=== PATIENT | male | born 1955 | race Caucasian/White ===

== ENCOUNTER 2017-12-04 16:24 | Observation (INO) | payer OTHER, SELFPAY ==
[2017-12-04] VITALS (7 sets, daily range): BP systolic 142–164; BP diastolic 72–94; PULSE 63–85; RESP 16–18; TEMP 36.6–37.1; O2SAT 95–100; BMI 26.4; BMI 26.9
--- NOTE | 2017-12-04 13:20 | ED.GIBLEED ---
HPI - GI Bleed <ANNELIESE Prescott - Last Filed: 12/04/17 16:22> General Chief complaint: GI Bleed Stated complaint: PASSING BLOODY STOOL Time Seen by Provider: 12/04/17 13:10 Source: patient and family Mode of arrival: ambulatory Limitations: no limitations History of Present Illness HPI Narrative: Patient presents with bright red blood per rectum. He has a history of hemorrhoids and has been having bright red blood per rectum on and off for a long time. However the past 2 weeks it has become worse. He has had several episodes where the bleeding is so bad that it runs down his pants. It happens in episodes when he is walking and he has no idea that happens. He does complain of some transient left abdominal pain that is not happening at this moment in time. He complains of blood after his bowel movements. Last bowel movement this morning. He denies any current abdominal pain nausea vomiting or diarrhea. He denies fevers. He does say that he has a hard time fully emptying his bladder. He denies any coffee-ground emesis or blood in his stool, only after his stool. He denies any lightheadedness or dizziness. Patient does have a history of colon polyps. His last colonoscopy was a year or 2 ago. Related Data Home Medications Medication Instructions Recorded Confirmed ascorbic acid (vitamin C) 1,000 mg PO DAILY #0 05/23/16 12/04/17 Previous Rx's Medication Instructions Recorded hydromorphone 4 mg PO Q4-6H PRN #30 tab 12/05/17 methylprednisolone [Medrol (Otto)] See Label Instructions PO PER PKG 12/05/17 DIR #21 each ondansetron 8 mg PO TID PRN #10 tab 12/05/17 Allergies Allergy/AdvReac Type Severity Reaction Status Date / Time promethazine [PROMETHAZINE] AdvReac Severe Agitated Verified 12/04/17 12:45 Fidgety Review of Systems <ANNELIESE Prescott - Last Filed: 12/04/17 16:22> Review of Systems GENERAL: See HPI HEENT: Denies sinus pain, ear pain, sore throat, difficulty swallowing, dizziness. RESPIRATORY: Denies dyspnea, cough, wheezing, hemoptysis, sputum. CARDIOVASCULAR: Denies chest pain, palpitations, orthopnea, edema, GASTROINTESTINAL: See HPI : Denies dysuria, frequency, incontinence, hematuria, urinary retention. MUSCULOSKELETAL: denies weakness, joint pain, or bony pain SKIN: Denies rash, skin lesions, or other NEUROLOGIC: Denies weakness, headache, numbness, change in speech, confusion, seizures, incoordination. PSYCHIATRIC: No concerning psychosocial issues. 12 point review of systems is negative except for those stated above Exam <Yeseniadana GordonRONNIE zapata-BC - Last Filed: 12/04/17 16:22> Narrative Exam Narrative: GENERAL: This is a well-nourished, well-developed patient, in no acute distress. HEAD: Atraumatic. Normocephalic. No temporal or scalp tenderness. EYES: Pupils equal round and reactive. Extraocular motions intact. No scleral icterus. No injection or drainage. ENT: Nose without bleeding, purulent drainage or septal hematoma. Throat without erythema, tonsillar hypertrophy or exudate. Uvula midline. Airway patent. NECK: Trachea midline. No JVD or lymphadenopathy. Supple, nontender, no meningeal signs. CARDIOVASCULAR: Regular rate and rhythm without murmurs, gallops, or rubs. RESPIRATORY: Clear to auscultation. Breath sounds equal bilaterally. No wheezes, rales, or rhonchi. GASTROINTESTINAL: Abdomen soft, non-tender, nondistended. No hepato-splenomegaly, or palpable masses. No guarding. Active bowel sounds all 4 quadrants. No pain to palpation. EXTREMITIES: No clubbing, cyanosis, or edema. No joint tenderness, effusion, or edema noted. BACK: Nontender without deformity or crepitance. No flank tenderness. NEURO: AOx3. SKIN: No rash or erythema. Rectal exam: Completed with Marysol RN at standby. Small external hemorrhoids visible. No internal hemorrhoids palpable. No anal fissure visible no obvious rectal bleeding. Initial Vital Signs Initial Vital Signs: Vital Signs Temperature 98.8 F 12/04/17 12:45 Pulse Rate 80 12/04/17 12:45 Respiratory Rate 16 12/04/17 12:45 Blood Pressure 144/80 H 12/04/17 12:45 Pulse Oximetry 97 12/04/17 12:45 <Nahomi Moon DO - Last Filed: 12/08/17 00:38> Initial Vital Signs Initial Vital Signs: Vital Signs Temperature 98.8 F 12/04/17 12:45 Pulse Rate 80 12/04/17 12:45 Respiratory Rate 16 12/04/17 12:45 Blood Pressure 144/80 H 12/04/17 12:45 Pulse Oximetry 97 12/04/17 12:45 Course <Yesenia MartinesSEAMUSP-BC - Last Filed: 12/04/17 16:22> Orders Ordered: Discontinued Medications Acetaminophen (Tylenol) 650 mg PO Q6HR PRN PRN Reason: As Needed for Fever/Mild Pain Acetaminophen (Tylenol) 325 mg PO NOW PRN PRN Reason: Pain, Mild (1-3) Hydrocodone Bitart/Acetaminophen ([place] 5/325) 1 tab PO Q4HR PRN PRN Reason: Pain, Moderate (4-6) Ascorbic Acid (Vitamin C) 1,000 mg PO DAILY [facility] Last Admin: 12/05/17 13:18 Dose: Not Given Diphenhydramine HCl (Benadryl) 50 mg IV NOW ONE Stop: 12/04/17 14:06 Last Admin: 12/04/17 14:08 Dose: 50 mg Fentanyl (Sublimaze) 50 mcg IV Q5MIN PRN PRN Reason: Pain, Moderate (4-6) Hydromorphone HCl (Dilaudid) 0.5 mg IV Q5MIN PRN PRN Reason: Pain, Moderate (4-6) Hydromorphone HCl (Dilaudid) 2 mg IV Q2HR PRN PRN Reason: Pain, Severe (7-10) Hydromorphone HCl (Dilaudid) 4 mg PO Q4HR PRN PRN Reason: Pain, Mild (1-3) Sodium Chloride (Normal Saline 0.9%) 1,000 mls @ 1,000 mls/hr IV BOLUS ONE Stop: 12/04/17 14:19 Last Infusion: 12/04/17 18:35 Dose: 1,000 mls/hr Infusion: 12/04/17 16:34 Dose: 1,000 mls/hr Admin: 12/04/17 14:06 Dose: 1,000 mls/hr Dextrose/Sodium Chloride (Dextrose 5%-0.45% Ns) 1,000 mls @ 100 mls/hr IV CONT [facility] Last Infusion: 12/05/17 06:32 Dose: 100 mls/hr Admin: 12/05/17 06:32 Dose: 100 mls/hr Infusion: 12/05/17 04:35 Dose: 100 mls/hr Admin: 12/04/17 18:35 Dose: 100 mls/hr Lactated Ringer's (Lactated Ringers) 1,000 mls @ 42 mls/hr IV CONT [facility] Last Admin: 12/05/17 12:35 Dose: 42 mls/hr Ondansetron HCl 8 mg/ Sodium (Chloride) 54 mls @ 216 mls/hr IV Q6HR PRN PRN Reason: Nausea And Vomiting Ketorolac Tromethamine (Toradol) 30 mg IV Q6HR [facility] Stop: 12/10/17 12:32 Last Admin: 12/05/17 18:08 Dose: Not Given Magnesium Citrate (Magnesium Citrate) 300 ml PO NOW ONE Stop: 12/04/17 17:57 Last Admin: 12/04/17 18:31 Dose: 300 ml Methylprednisolone (Solu-Medrol 125 Mg Vial) 125 mg IV NOW ONE Stop: 12/04/17 14:06 Last Admin: 12/04/17 14:08 Dose: 125 mg Metoclopramide HCl (Reglan) 10 mg IV NOW PRN PRN Reason: Nausea And Vomiting Ondansetron HCl (Zofran) 4 mg IV Q8HR PRN PRN Reason: Nausea And Vomiting Ondansetron HCl (Zofran) 4 mg IV NOW PRN PRN Reason: Nausea And Vomiting Last Admin: 12/05/17 12:22 Dose: 4 mg Ondansetron HCl (Zofran Odt) 8 mg PO TID PRN PRN Reason: nausea and vomiting Oxycodone/Acetaminophen (Percocet 5/325) 1 tab PO Q30MIN PRN PRN Reason: Mild or moderate pain Polyethylene Glycol/Electrolytes (Golytely Solution) 2,000 ml PO NOW ONE Stop: 12/04/17 17:57 Last Admin: 12/04/17 18:32 Dose: 2,000 ml Sodium Biphosphate/Sodium Phosphate (Fleet Enema) 1 each [place] PRN PRN PRN Reason: Constipation Reevaluation(s) Reevaluation #1: Rectal exam completed with Marysol GOMEZ as standby. Was not able to obtain an of fecal matter for Hemoccult. Encouraged patient to let us know if he has a bowel movement so he can do that. Patient states he had hives after his CT contrast, but it ?was not enough to be called an allergy. The subtle medicate him with Solu-Medrol and Benadryl prior to CT scan. Confirmed with his .. She states that he did not have enough of the reaction to be called that official ?allergy? Time: 14:10 Reevaluation #2: Patient returned from CT. Denies shortness of breath. Ambulating to the bathroom at this point time. Time: 14:35 Reevaluation #3: Discussed CT findings with patient and . Abdomen remains soft and nontender to palpation all quadrants. Time: 15:15 Consultations Consultation #1: Spoke with Dr. Santiago regarding admitting the patient Time: 15:25 Consultation #2: Spoke with Dr. Yo, who stated he could perform a scope tomorrow morning at 10:30 a.m. or 11:00 a.m. and the patient needed to start bowel prep as soon as possible. Discussed Dr. Yo's capabilities with Dr. Santiago, who kindly agreed to admit the patient to observation status. Time: 15:45 Vital Signs - 8 hr 12/04/17 12:45 12/04/17 14:10 12/04/17 14:44 Temperature 98.8 F Pulse Rate 80 85 76 Respiratory Rate 16 18 18 Blood Pressure 144/80 H Blood Pressure [Left Arm] 164/94 H 142/72 H Pulse Oximetry 97 99 100 12/04/17 16:20 Temperature Pulse Rate 72 Respiratory Rate 16 Blood Pressure Blood Pressure [Left Arm] 143/76 H Pulse Oximetry 100 <Nahomi Moon, DO - Last Filed: 12/08/17 00:38> Orders Ordered: Discontinued Medications Acetaminophen (Tylenol) 650 mg PO Q6HR PRN PRN Reason: As Needed for Fever/Mild Pain Acetaminophen (Tylenol) 325 mg PO NOW PRN PRN Reason: Pain, Mild (1-3) Hydrocodone Bitart/Acetaminophen ([place] 5/325) 1 tab PO Q4HR PRN PRN Reason: Pain, Moderate (4-6) Ascorbic Acid (Vitamin C) 1,000 mg PO DAILY [facility] Last Admin: 12/05/17 13:18 Dose: Not Given Diphenhydramine HCl (Benadryl) 50 mg IV NOW ONE Stop: 12/04/17 14:06 Last Admin: 12/04/17 14:08 Dose: 50 mg Fentanyl (Sublimaze) 50 mcg IV Q5MIN PRN PRN Reason: Pain, Moderate (4-6) Hydromorphone HCl (Dilaudid) 0.5 mg IV Q5MIN PRN PRN Reason: Pain, Moderate (4-6) Hydromorphone HCl (Dilaudid) 2 mg IV Q2HR PRN PRN Reason: Pain, Severe (7-10) Hydromorphone HCl (Dilaudid) 4 mg PO Q4HR PRN PRN Reason: Pain, Mild (1-3) Sodium Chloride (Normal Saline 0.9%) 1,000 mls @ 1,000 mls/hr IV BOLUS ONE Stop: 12/04/17 14:19 Last Infusion: 12/04/17 18:35 Dose: 1,000 mls/hr Infusion: 12/04/17 16:34 Dose: 1,000 mls/hr Admin: 12/04/17 14:06 Dose: 1,000 mls/hr Dextrose/Sodium Chloride (Dextrose 5%-0.45% Ns) 1,000 mls @ 100 mls/hr IV CONT CHANTEL Last Infusion: 12/05/17 06:32 Dose: 100 mls/hr Admin: 12/05/17 06:32 Dose: 100 mls/hr Infusion: 12/05/17 04:35 Dose: 100 mls/hr Admin: 12/04/17 18:35 Dose: 100 mls/hr Lactated Ringer's (Lactated Ringers) 1,000 mls @ 42 mls/hr IV CONT [facility] Last Admin: 12/05/17 12:35 Dose: 42 mls/hr Ondansetron HCl 8 mg/ Sodium (Chloride) 54 mls @ 216 mls/hr IV Q6HR PRN PRN Reason: Nausea And Vomiting Ketorolac Tromethamine (Toradol) 30 mg IV Q6HR [facility] Stop: 12/10/17 12:32 Last Admin: 12/05/17 18:08 Dose: Not Given Magnesium Citrate (Magnesium Citrate) 300 ml PO NOW ONE Stop: 12/04/17 17:57 Last Admin: 12/04/17 18:31 Dose: 300 ml Methylprednisolone (Solu-Medrol 125 Mg Vial) 125 mg IV NOW ONE Stop: 12/04/17 14:06 Last Admin: 12/04/17 14:08 Dose: 125 mg Metoclopramide HCl (Reglan) 10 mg IV NOW PRN PRN Reason: Nausea And Vomiting Ondansetron HCl (Zofran) 4 mg IV Q8HR PRN PRN Reason: Nausea And Vomiting Ondansetron HCl (Zofran) 4 mg IV NOW PRN PRN Reason: Nausea And Vomiting Last Admin: 12/05/17 12:22 Dose: 4 mg Ondansetron HCl (Zofran Odt) 8 mg PO TID PRN PRN Reason: nausea and vomiting Oxycodone/Acetaminophen (Percocet 5/325) 1 tab PO Q30MIN PRN PRN Reason: Mild or moderate pain Polyethylene Glycol/Electrolytes (Golytely Solution) 2,000 ml PO NOW ONE Stop: 12/04/17 17:57 Last Admin: 12/04/17 18:32 Dose: 2,000 ml Sodium Biphosphate/Sodium Phosphate (Fleet Enema) 1 each [place] PRN PRN PRN Reason: Constipation Vital Signs - 8 hr 12/04/17 12:45 12/04/17 14:10 12/04/17 14:44 Temperature 98.8 F Pulse Rate 80 85 76 Respiratory Rate 16 18 18 Blood Pressure 144/80 H Blood Pressure [Left Arm] 164/94 H 142/72 H Pulse Oximetry 97 99 100 12/04/17 16:20 Temperature Pulse Rate 72 Respiratory Rate 16 Blood Pressure Blood Pressure [Left Arm] 143/76 H Pulse Oximetry 100 MDM - GI Bleed <ANNELIESE Prescott - Last Filed: 12/04/17 16:22> Lab Data Attestation: I reviewed the patient's lab results. Result diagrams: 12/04/17 13:26 12/04/17 13:26 Lab Results 12/04/17 12/04/17 12/04/17 Range/Units 13:26 13:26 13:26 WBC 5.4 (4.5-11.0) X10^3/uL RBC 3.79 L (4.5-5.9) X10^6/uL Hgb 10.9 L (13.5-17.5) g/dL Hct 33.4 L (41-53) % MCV 88.0 (80-100) fL MCH 28.8 (26-34) PG MCHC 32.8 (30-36) % RDW 15.6 H (11.6-14.8) % Plt Count 210 (150-400) X10^3/uL Neut % (Auto) 65.2 (50-75) % Lymph % (Auto) 25.1 (25-40) % Glenn % (Auto) 6.9 (3-14) % Eos % (Auto) 1.8 L (2-4) % Baso % (Auto) 1.0 (0-2) % Neut # (Auto) 3600 (3405-7981) /uL PT 11.5 (10.1-12.7) SECONDS INR 1.1 (0.9-1.3) APTT 27 (26.4-36.2) SECONDS Sodium (137-145) mmol/L Potassium (3.4-5.1) mmol/L Chloride (98-107) mmol/L Carbon Dioxide (22-32) mmol/L BUN (9-20) mg/dL Creatinine (0.66-1.25) mg/dL Estimated GFR (>60) mL/min BUN/Creatinine Ratio (6-22) Glucose (80-110) mg/dL Calcium (8.4-10.2) mg/dL Total Bilirubin (0.2-1.3) mg/dL AST (17-59) IU/L ALT (21-72) IU/L Alkaline Phosphatase (38-126) U/L Total Protein (6.3-8.2) g/dL Albumin (3.5-5.0) g/dL Globulin (1.7-4.1) g/dL Albumin/Globulin Ratio (1.0-2.8) Amylase 73 (30-110) U/L Lipase 51 (23-300) U/L Urine Color Urine Appearance Urine pH (4.5-8.0) Ur Specific [place] (1.000-1.035) Urine Protein (Negative) Urine Glucose (UA) (Normal) g/dL Urine Ketones (NEGATIVE) Urine Occult Blood (Negative) Urine Nitrate (Negative) Urine Bilirubin (NEGATIVE) Urine Urobilinogen (0.2) E.U./dL Ur Leukocyte Esterase (NEGATIVE) Urine RBC (0-5/HPF) Urine WBC (0-5/HPF) Ur Squamous Epith Cells Urine Bacteria (None) Ur Culture Indicated? Micro UA Comment Blood Type Antibody Screen 12/04/17 12/04/17 12/04/17 Range/Units 13:26 13:26 14:35 WBC (4.5-11.0) X10^3/uL RBC (4.5-5.9) X10^6/uL Hgb (13.5-17.5) g/dL Hct (41-53) % MCV (80-100) fL MCH (26-34) PG MCHC (30-36) % RDW (11.6-14.8) % Plt Count (150-400) X10^3/uL Neut % (Auto) (50-75) % Lymph % (Auto) (25-40) % Glenn % (Auto) (3-14) % Eos % (Auto) (2-4) % Baso % (Auto) (0-2) % Neut # (Auto) (0467-8316) /uL PT (10.1-12.7) SECONDS INR (0.9-1.3) APTT (26.4-36.2) SECONDS Sodium 140 (137-145) mmol/L Potassium 3.8 (3.4-5.1) mmol/L Chloride 104 (98-107) mmol/L Carbon Dioxide 27 (22-32) mmol/L BUN 17 (9-20) mg/dL Creatinine 0.90 (0.66-1.25) mg/dL Estimated GFR > 60.0 (>60) mL/min BUN/Creatinine Ratio 18.9 (6-22) Glucose 89 (80-110) mg/dL Calcium 9.2 (8.4-10.2) mg/dL Total Bilirubin 0.6 (0.2-1.3) mg/dL AST 38 (17-59) IU/L ALT 39 (21-72) IU/L Alkaline Phosphatase 62 (38-126) U/L Total Protein 6.8 (6.3-8.2) g/dL Albumin 4.1 (3.5-5.0) g/dL Globulin 2.7 (1.7-4.1) g/dL Albumin/Globulin Ratio 1.5 (1.0-2.8) Amylase (30-110) U/L Lipase (23-300) U/L Urine Color Yellow Urine Appearance Clear Urine pH 5.5 (4.5-8.0) Ur Specific [place] <=1.005 (1.000-1.035) Urine Protein Negative (Negative) Urine Glucose (UA) Negative (Normal) g/dL Urine Ketones Negative (NEGATIVE) Urine Occult Blood Negative (Negative) Urine Nitrate Negative (Negative) Urine Bilirubin Negative (NEGATIVE) Urine Urobilinogen 0.2 (0.2) E.U./dL Ur Leukocyte Esterase Negative (NEGATIVE) Urine RBC None seen (0-5/HPF) Urine WBC None seen (0-5/HPF) Ur Squamous Epith Cells 0-1 /hpf Urine Bacteria None seen (None) Ur Culture Indicated? Cult not indicated Micro UA Comment Not Reportable Blood Type O Positive Antibody Screen Negative Imaging Data CT scan - abdomen: Radiologist's impression: View Report History [address] [address] [address] Scan Report Signed Patient: Colt Richardson MR#: [id number] : 1955 Acct:[id number] Age/Sex: 62 / M Date of Service: 12/04/17 Loc: ED Accession Number: [id number] Procedure: CT abdomen pelvis w con Ordering Provider: Yesenia Martines [facility]- PROCEDURE: CT ABDOMEN PELVIS W CON INDICATIONS: Left lower quadrant abdominal pain, bright red blood per rectum TECHNIQUE: After the administration of intravenous contrast, 5 mm thick sections acquired from the diaphragm to the symphysis. 5 mm coronal and sagittal reformats were acquired. For radiation dose reduction, the following was used: automated exposure control, adjustment of mA and/or kV according to patient size. COMPARISON: None. FINDINGS: Image quality: Excellent. ABDOMEN: Lung bases: Lung bases are clear. Heart size is normal. Solid organs: Liver is normal in size and enhancement. Gallbladder appears normal. Biliary system is non dilated. Pancreas enhances normally. Spleen is normal in size and enhancement. No adrenal nodules. Kidneys demonstrate normal size and enhancement, without hydronephrosis. Peritoneum and bowel: Bowel loops demonstrate normal wall thickness and caliber. Normal appendix. Colonic diverticula are scattered with no focal wall thickening or pericolic inflammation. No free fluid or air. Nodes and vessels: No retroperitoneal or mesenteric adenopathy by size criteria. Aorta and inferior vena cava are normal in size. Miscellaneous: No ventral hernias. PELVIS: Genitourinary: Bladder wall thickness is normal. Miscellaneous: No inguinal hernias or adenopathy. Bones: No suspicious bony lesions. No vertebral body compression fractures. Degenerative lumbar disc disease most marked at L5-S1 associated with slight retrolisthesis. IMPRESSION: 1. Colonic diverticulosis without CT evidence of diverticulitis. No colorectal mass is seen to explain hematochezia. Colonoscopic evaluation suggested. 2. Remainder of exam is unremarkable Dictated by: Francois Pizarro M.D. on 12/04/2017 at 14:47 Approved by: Francois Pizarro M.D. on 12/04/2017 at 14:54 MDM Narrative Medical decision making narrative: Patient presents with reported bright red blood per rectum. Unfortunately I cannot acquire enough of a stool sample on rectal exam for Hemoccult. His labs are significant for a low H&H however they are not critically low. Given the patient's history of colon polyps, I contacted Dr. Santiago for possible admission for scope. Given that his amount of bleeding is significant enough to be running down his legs, combined with his history of colon polyps, I feel a colonoscopy would be better to be performed sooner rather than later. The patient was admitted to observation status under Dr. Santiago. I spoke with Dr. Yo who kindly agreed to perform a scope tomorrow morning. I discussed with Dr. Santiago starting colonoscopy prep as soon as possible. The patient is are in agreement with this admission and have no questions or concerns at this point time. <Nahomi Moon, DO - Last Filed: 12/08/17 00:38> Lab Data Lab Results 12/04/17 12/04/17 12/04/17 Range/Units 13:26 13:26 13:26 WBC 5.4 (4.5-11.0) X10^3/uL RBC 3.79 L (4.5-5.9) X10^6/uL Hgb 10.9 L (13.5-17.5) g/dL Hct 33.4 L (41-53) % MCV 88.0 (80-100) fL MCH 28.8 (26-34) PG MCHC 32.8 (30-36) % RDW 15.6 H (11.6-14.8) % Plt Count 210 (150-400) X10^3/uL Neut % (Auto) 65.2 (50-75) % Lymph % (Auto) 25.1 (25-40) % Glenn % (Auto) 6.9 (3-14) % Eos % (Auto) 1.8 L (2-4) % Baso % (Auto) 1.0 (0-2) % Neut # (Auto) 3600 (9038-5101) /uL PT 11.5 (10.1-12.7) SECONDS INR 1.1 (0.9-1.3) APTT 27 (26.4-36.2) SECONDS Sodium (137-145) mmol/L Potassium (3.4-5.1) mmol/L Chloride (98-107) mmol/L Carbon Dioxide (22-32) mmol/L BUN (9-20) mg/dL Creatinine (0.66-1.25) mg/dL Estimated GFR (>60) mL/min BUN/Creatinine Ratio (6-22) Glucose (80-110) mg/dL Calcium (8.4-10.2) mg/dL Total Bilirubin (0.2-1.3) mg/dL AST (17-59) IU/L ALT (21-72) IU/L Alkaline Phosphatase (38-126) U/L Total Protein (6.3-8.2) g/dL Albumin (3.5-5.0) g/dL Globulin (1.7-4.1) g/dL Albumin/Globulin Ratio (1.0-2.8) Amylase 73 (30-110) U/L Lipase 51 (23-300) U/L Urine Color Urine Appearance Urine pH (4.5-8.0) Ur Specific [place] (1.000-1.035) Urine Protein (Negative) Urine Glucose (UA) (Normal) g/dL Urine Ketones (NEGATIVE) Urine Occult Blood (Negative) Urine Nitrate (Negative) Urine Bilirubin (NEGATIVE) Urine Urobilinogen (0.2) E.U./dL Ur Leukocyte Esterase (NEGATIVE) Urine RBC (0-5/HPF) Urine WBC (0-5/HPF) Ur Squamous Epith Cells Urine Bacteria (None) Ur Culture Indicated? Micro UA Comment Blood Type Antibody Screen 12/04/17 12/04/17 12/04/17 Range/Units 13:26 13:26 14:35 WBC (4.5-11.0) X10^3/uL RBC (4.5-5.9) X10^6/uL Hgb (13.5-17.5) g/dL Hct (41-53) % MCV (80-100) fL MCH (26-34) PG MCHC (30-36) % RDW (11.6-14.8) % Plt Count (150-400) X10^3/uL Neut % (Auto) (50-75) % Lymph % (Auto) (25-40) % Glenn % (Auto) (3-14) % Eos % (Auto) (2-4) % Baso % (Auto) (0-2) % Neut # (Auto) (5285-9831) /uL PT (10.1-12.7) SECONDS INR (0.9-1.3) APTT (26.4-36.2) SECONDS Sodium 140 (137-145) mmol/L Potassium 3.8 (3.4-5.1) mmol/L Chloride 104 (98-107) mmol/L Carbon Dioxide 27 (22-32) mmol/L BUN 17 (9-20) mg/dL Creatinine 0.90 (0.66-1.25) mg/dL Estimated GFR > 60.0 (>60) mL/min BUN/Creatinine Ratio 18.9 (6-22) Glucose 89 (80-110) mg/dL Calcium 9.2 (8.4-10.2) mg/dL Total Bilirubin 0.6 (0.2-1.3) mg/dL AST 38 (17-59) IU/L ALT 39 (21-72) IU/L Alkaline Phosphatase 62 (38-126) U/L Total Protein 6.8 (6.3-8.2) g/dL Albumin 4.1 (3.5-5.0) g/dL Globulin 2.7 (1.7-4.1) g/dL Albumin/Globulin Ratio 1.5 (1.0-2.8) Amylase (30-110) U/L Lipase (23-300) U/L Urine Color Yellow Urine Appearance Clear Urine pH 5.5 (4.5-8.0) Ur Specific [place] <=1.005 (1.000-1.035) Urine Protein Negative (Negative) Urine Glucose (UA) Negative (Normal) g/dL Urine Ketones Negative (NEGATIVE) Urine Occult Blood Negative (Negative) Urine Nitrate Negative (Negative) Urine Bilirubin Negative (NEGATIVE) Urine Urobilinogen 0.2 (0.2) E.U./dL Ur Leukocyte Esterase Negative (NEGATIVE) Urine RBC None seen (0-5/HPF) Urine WBC None seen (0-5/HPF) Ur Squamous Epith Cells 0-1 /hpf Urine Bacteria None seen (None) Ur Culture Indicated? Cult not indicated Micro UA Comment Not Reportable Blood Type O Positive Antibody Screen Negative Discharge Plan Departure Patient Disposition: Admitted as Observation Clinical Impression: GI (gastrointestinal bleed) Discharge Date/Time: 12/04/17 16:37 Interventions: ED Discharge Assessment Last Done: 12/04/17 16:35 Referrals: José Miguel Yo MD [Physician] - 1 Week (CALL FOR FOLLOW UP APPOINTMENT IN ONE WEEK ) Admit Date/Time: 12/04/17 16:24 Admit Provider: Stacie Santiago <Nahomi Moon DO - Last Filed: 12/08/17 00:38> Cosign ED Attending Jordanature Attestation: I was immediately available in the department for consultation. Documentation has been reviewed. I agree with assessment and plan.
--- NOTE | 2017-12-04 13:24 | DI.CT.S_ITS ---
PROCEDURE: CT ABDOMEN PELVIS W CON INDICATIONS: Left lower quadrant abdominal pain, bright red blood per rectum TECHNIQUE: After the administration of intravenous contrast, 5 mm thick sections acquired from the diaphragm to the symphysis. 5 mm coronal and sagittal reformats were acquired. For radiation dose reduction, the following was used: automated exposure control, adjustment of mA and/or kV according to patient size. COMPARISON: None. FINDINGS: Image quality: Excellent. ABDOMEN: Lung bases: Lung bases are clear. Heart size is normal. Solid organs: Liver is normal in size and enhancement. Gallbladder appears normal. Biliary system is non dilated. Pancreas enhances normally. Spleen is normal in size and enhancement. No adrenal nodules. Kidneys demonstrate normal size and enhancement, without hydronephrosis. Peritoneum and bowel: Bowel loops demonstrate normal wall thickness and caliber. Normal appendix. Colonic diverticula are scattered with no focal wall thickening or pericolic inflammation. No free fluid or air. Nodes and vessels: No retroperitoneal or mesenteric adenopathy by size criteria. Aorta and inferior vena cava are normal in size. Miscellaneous: No ventral hernias. PELVIS: Genitourinary: Bladder wall thickness is normal. Miscellaneous: No inguinal hernias or adenopathy. Bones: No suspicious bony lesions. No vertebral body compression fractures. Degenerative lumbar disc disease most marked at L5-S1 associated with slight retrolisthesis. IMPRESSION: 1. Colonic diverticulosis without CT evidence of diverticulitis. No colorectal mass is seen to explain hematochezia. Colonoscopic evaluation suggested. 2. Remainder of exam is unremarkable Dictated by: Francois Pizarro M.D. on 12/04/2017 at 14:47 Approved by: Francois Pizarro M.D. on 12/04/2017 at 14:54
--- NOTE | 2017-12-04 13:29 | ED_ITS ---
HPI - GI Bleed <ANNELIESE Prescott - Last Filed: 12/04/17 16:22> General Chief complaint: GI Bleed Stated complaint: PASSING BLOODY STOOL Time Seen by Provider: 12/04/17 13:10 Source: patient and family Mode of arrival: ambulatory Limitations: no limitations History of Present Illness HPI Narrative: Patient presents with bright red blood per rectum. He has a history of hemorrhoids and has been having bright red blood per rectum on and off for a long time. However the past 2 weeks it has become worse. He has had several episodes where the bleeding is so bad that it runs down his pants. It happens in episodes when he is walking and he has no idea that happens. He does complain of some transient left abdominal pain that is not happening at this moment in time. He complains of blood after his bowel movements. Last bowel movement this morning. He denies any current abdominal pain nausea vomiting or diarrhea. He denies fevers. He does say that he has a hard time fully emptying his bladder. He denies any coffee-ground emesis or blood in his stool, only after his stool. He denies any lightheadedness or dizziness. Patient does have a history of colon polyps. His last colonoscopy was a year or 2 ago. Related Data Home Medications Medication Instructions Recorded Confirmed ascorbic acid (vitamin C) 1,000 mg PO DAILY #0 05/23/16 12/04/17 Previous Rx's Medication Instructions Recorded hydromorphone 4 mg PO Q4-6H PRN #30 tab 12/05/17 methylprednisolone [Medrol (Otto)] See Label Instructions PO PER PKG 12/05/17 DIR #21 each ondansetron 8 mg PO TID PRN #10 tab 12/05/17 Allergies Allergy/AdvReac Type Severity Reaction Status Date / Time promethazine [PROMETHAZINE] AdvReac Severe Agitated Verified 12/04/17 12:45 Fidgety Review of Systems <ANNELIESE Prescott - Last Filed: 12/04/17 16:22> Review of Systems GENERAL: See HPI HEENT: Denies sinus pain, ear pain, sore throat, difficulty swallowing, dizziness. RESPIRATORY: Denies dyspnea, cough, wheezing, hemoptysis, sputum. CARDIOVASCULAR: Denies chest pain, palpitations, orthopnea, edema, GASTROINTESTINAL: See HPI : Denies dysuria, frequency, incontinence, hematuria, urinary retention. MUSCULOSKELETAL: denies weakness, joint pain, or bony pain SKIN: Denies rash, skin lesions, or other NEUROLOGIC: Denies weakness, headache, numbness, change in speech, confusion, seizures, incoordination. PSYCHIATRIC: No concerning psychosocial issues. 12 point review of systems is negative except for those stated above Exam <Yeseniadana GordonRONNIE zapata-BC - Last Filed: 12/04/17 16:22> Narrative Exam Narrative: GENERAL: This is a well-nourished, well-developed patient, in no acute distress. HEAD: Atraumatic. Normocephalic. No temporal or scalp tenderness. EYES: Pupils equal round and reactive. Extraocular motions intact. No scleral icterus. No injection or drainage. ENT: Nose without bleeding, purulent drainage or septal hematoma. Throat without erythema, tonsillar hypertrophy or exudate. Uvula midline. Airway patent. NECK: Trachea midline. No JVD or lymphadenopathy. Supple, nontender, no meningeal signs. CARDIOVASCULAR: Regular rate and rhythm without murmurs, gallops, or rubs. RESPIRATORY: Clear to auscultation. Breath sounds equal bilaterally. No wheezes , rales, or rhonchi. GASTROINTESTINAL: Abdomen soft, non-tender, nondistended. No hepato-splenomegaly , or palpable masses. No guarding. Active bowel sounds all 4 quadrants. No pain to palpation. EXTREMITIES: No clubbing, cyanosis, or edema. No joint tenderness, effusion, or edema noted. BACK: Nontender without deformity or crepitance. No flank tenderness. NEURO: AOx3. SKIN: No rash or erythema. Rectal exam: Completed with Marysol RN at standby. Small external hemorrhoids visible. No internal hemorrhoids palpable. No anal fissure visible no obvious rectal bleeding. Initial Vital Signs Initial Vital Signs: Vital Signs Temperature 98.8 F 12/04/17 12:45 Pulse Rate 80 12/04/17 12:45 Respiratory Rate 16 12/04/17 12:45 Blood Pressure 144/80 H 12/04/17 12:45 Pulse Oximetry 97 12/04/17 12:45 <Nahomi Moon DO - Last Filed: 12/08/17 00:38> Initial Vital Signs Initial Vital Signs: Vital Signs Temperature 98.8 F 12/04/17 12:45 Pulse Rate 80 12/04/17 12:45 Respiratory Rate 16 12/04/17 12:45 Blood Pressure 144/80 H 12/04/17 12:45 Pulse Oximetry 97 12/04/17 12:45 Course <Yesenia MartinesSEAMUSP-BC - Last Filed: 12/04/17 16:22> Orders Ordered: Discontinued Medications Acetaminophen (Tylenol) 650 mg PO Q6HR PRN PRN Reason: As Needed for Fever/Mild Pain Acetaminophen (Tylenol) 325 mg PO NOW PRN PRN Reason: Pain, Mild (1-3) Hydrocodone Bitart/Acetaminophen ([place] 5/325) 1 tab PO Q4HR PRN PRN Reason: Pain, Moderate (4-6) Ascorbic Acid (Vitamin C) 1,000 mg PO DAILY [facility] Last Admin: 12/05/17 13:18 Dose: Not Given Diphenhydramine HCl (Benadryl) 50 mg IV NOW ONE Stop: 12/04/17 14:06 Last Admin: 12/04/17 14:08 Dose: 50 mg Fentanyl (Sublimaze) 50 mcg IV Q5MIN PRN PRN Reason: Pain, Moderate (4-6) Hydromorphone HCl (Dilaudid) 0.5 mg IV Q5MIN PRN PRN Reason: Pain, Moderate (4-6) Hydromorphone HCl (Dilaudid) 2 mg IV Q2HR PRN PRN Reason: Pain, Severe (7-10) Hydromorphone HCl (Dilaudid) 4 mg PO Q4HR PRN PRN Reason: Pain, Mild (1-3) Sodium Chloride (Normal Saline 0.9%) 1,000 mls @ 1,000 mls/hr IV BOLUS ONE Stop: 12/04/17 14:19 Last Infusion: 12/04/17 18:35 Dose: 1,000 mls/hr Infusion: 12/04/17 16:34 Dose: 1,000 mls/hr Admin: 12/04/17 14:06 Dose: 1,000 mls/hr Dextrose/Sodium Chloride (Dextrose 5%-0.45% Ns) 1,000 mls @ 100 mls/hr IV CONT [facility] Last Infusion: 12/05/17 06:32 Dose: 100 mls/hr Admin: 12/05/17 06:32 Dose: 100 mls/hr Infusion: 12/05/17 04:35 Dose: 100 mls/hr Admin: 12/04/17 18:35 Dose: 100 mls/hr Lactated Ringer's (Lactated Ringers) 1,000 mls @ 42 mls/hr IV CONT [facility] Last Admin: 12/05/17 12:35 Dose: 42 mls/hr Ondansetron HCl 8 mg/ Sodium (Chloride) 54 mls @ 216 mls/hr IV Q6HR PRN PRN Reason: Nausea And Vomiting Ketorolac Tromethamine (Toradol) 30 mg IV Q6HR [facility] Stop: 12/10/17 12:32 Last Admin: 12/05/17 18:08 Dose: Not Given Magnesium Citrate (Magnesium Citrate) 300 ml PO NOW ONE Stop: 12/04/17 17:57 Last Admin: 12/04/17 18:31 Dose: 300 ml Methylprednisolone (Solu-Medrol 125 Mg Vial) 125 mg IV NOW ONE Stop: 12/04/17 14:06 Last Admin: 12/04/17 14:08 Dose: 125 mg Metoclopramide HCl (Reglan) 10 mg IV NOW PRN PRN Reason: Nausea And Vomiting Ondansetron HCl (Zofran) 4 mg IV Q8HR PRN PRN Reason: Nausea And Vomiting Ondansetron HCl (Zofran) 4 mg IV NOW PRN PRN Reason: Nausea And Vomiting Last Admin: 12/05/17 12:22 Dose: 4 mg Ondansetron HCl (Zofran Odt) 8 mg PO TID PRN PRN Reason: nausea and vomiting Oxycodone/Acetaminophen (Percocet 5/325) 1 tab PO Q30MIN PRN PRN Reason: Mild or moderate pain Polyethylene Glycol/Electrolytes (Golytely Solution) 2,000 ml PO NOW ONE Stop: 12/04/17 17:57 Last Admin: 12/04/17 18:32 Dose: 2,000 ml Sodium Biphosphate/Sodium Phosphate (Fleet Enema) 1 each [place] PRN PRN PRN Reason: Constipation Reevaluation(s) Reevaluation #1: Rectal exam completed with Marysol GOMEZ as standby. Was not able to obtain an of fecal matter for Hemoccult. Encouraged patient to let us know if he has a bowel movement so he can do that. Patient states he had hives after his CT contrast, but it ?was not enough to be called an allergy. The subtle medicate him with Solu-Medrol and Benadryl prior to CT scan. Confirmed with his .. She states that he did not have enough of the reaction to be called that official ?allergy? Time: 14:10 Reevaluation #2: Patient returned from CT. Denies shortness of breath. Ambulating to the bathroom at this point time. Time: 14:35 Reevaluation #3: Discussed CT findings with patient and . Abdomen remains soft and nontender to palpation all quadrants. Time: 15:15 Consultations Consultation #1: Spoke with Dr. Santiago regarding admitting the patient Time: 15:25 Consultation #2: Spoke with Dr. Yo, who stated he could perform a scope tomorrow morning at 10:30 a.m. or 11:00 a.m. and the patient needed to start bowel prep as soon as possible. Discussed Dr. Yo's capabilities with Dr. Santiago, who kindly agreed to admit the patient to observation status. Time: 15:45 Vital Signs - 8 hr 12/04/17 12:45 12/04/17 14:10 12/04/17 14:44 Temperature 98.8 F Pulse Rate 80 85 76 Respiratory Rate 16 18 18 Blood Pressure 144/80 H Blood Pressure [Left Arm] 164/94 H 142/72 H Pulse Oximetry 97 99 100 12/04/17 16:20 Temperature Pulse Rate 72 Respiratory Rate 16 Blood Pressure Blood Pressure [Left Arm] 143/76 H Pulse Oximetry 100 <Nahomi Moon, DO - Last Filed: 12/08/17 00:38> Orders Ordered: Discontinued Medications Acetaminophen (Tylenol) 650 mg PO Q6HR PRN PRN Reason: As Needed for Fever/Mild Pain Acetaminophen (Tylenol) 325 mg PO NOW PRN PRN Reason: Pain, Mild (1-3) Hydrocodone Bitart/Acetaminophen ([place] 5/325) 1 tab PO Q4HR PRN PRN Reason: Pain, Moderate (4-6) Ascorbic Acid (Vitamin C) 1,000 mg PO DAILY [facility] Last Admin: 12/05/17 13:18 Dose: Not Given Diphenhydramine HCl (Benadryl) 50 mg IV NOW ONE Stop: 12/04/17 14:06 Last Admin: 12/04/17 14:08 Dose: 50 mg Fentanyl (Sublimaze) 50 mcg IV Q5MIN PRN PRN Reason: Pain, Moderate (4-6) Hydromorphone HCl (Dilaudid) 0.5 mg IV Q5MIN PRN PRN Reason: Pain, Moderate (4-6) Hydromorphone HCl (Dilaudid) 2 mg IV Q2HR PRN PRN Reason: Pain, Severe (7-10) Hydromorphone HCl (Dilaudid) 4 mg PO Q4HR PRN PRN Reason: Pain, Mild (1-3) Sodium Chloride (Normal Saline 0.9%) 1,000 mls @ 1,000 mls/hr IV BOLUS ONE Stop: 12/04/17 14:19 Last Infusion: 12/04/17 18:35 Dose: 1,000 mls/hr Infusion: 12/04/17 16:34 Dose: 1,000 mls/hr Admin: 12/04/17 14:06 Dose: 1,000 mls/hr Dextrose/Sodium Chloride (Dextrose 5%-0.45% Ns) 1,000 mls @ 100 mls/hr IV CONT CHANTEL Last Infusion: 12/05/17 06:32 Dose: 100 mls/hr Admin: 12/05/17 06:32 Dose: 100 mls/hr Infusion: 12/05/17 04:35 Dose: 100 mls/hr Admin: 12/04/17 18:35 Dose: 100 mls/hr Lactated Ringer's (Lactated Ringers) 1,000 mls @ 42 mls/hr IV CONT CHANTEL Last Admin: 12/05/17 12:35 Dose: 42 mls/hr Ondansetron HCl 8 mg/ Sodium (Chloride) 54 mls @ 216 mls/hr IV Q6HR PRN PRN Reason: Nausea And Vomiting Ketorolac Tromethamine (Toradol) 30 mg IV Q6HR [facility] Stop: 12/10/17 12:32 Last Admin: 12/05/17 18:08 Dose: Not Given Magnesium Citrate (Magnesium Citrate) 300 ml PO NOW ONE Stop: 12/04/17 17:57 Last Admin: 12/04/17 18:31 Dose: 300 ml Methylprednisolone (Solu-Medrol 125 Mg Vial) 125 mg IV NOW ONE Stop: 12/04/17 14:06 Last Admin: 12/04/17 14:08 Dose: 125 mg Metoclopramide HCl (Reglan) 10 mg IV NOW PRN PRN Reason: Nausea And Vomiting Ondansetron HCl (Zofran) 4 mg IV Q8HR PRN PRN Reason: Nausea And Vomiting Ondansetron HCl (Zofran) 4 mg IV NOW PRN PRN Reason: Nausea And Vomiting Last Admin: 12/05/17 12:22 Dose: 4 mg Ondansetron HCl (Zofran Odt) 8 mg PO TID PRN PRN Reason: nausea and vomiting Oxycodone/Acetaminophen (Percocet 5/325) 1 tab PO Q30MIN PRN PRN Reason: Mild or moderate pain Polyethylene Glycol/Electrolytes (Golytely Solution) 2,000 ml PO NOW ONE Stop: 12/04/17 17:57 Last Admin: 12/04/17 18:32 Dose: 2,000 ml Sodium Biphosphate/Sodium Phosphate (Fleet Enema) 1 each [place] PRN PRN PRN Reason: Constipation Vital Signs - 8 hr 12/04/17 12:45 12/04/17 14:10 12/04/17 14:44 Temperature 98.8 F Pulse Rate 80 85 76 Respiratory Rate 16 18 18 Blood Pressure 144/80 H Blood Pressure [Left Arm] 164/94 H 142/72 H Pulse Oximetry 97 99 100 12/04/17 16:20 Temperature Pulse Rate 72 Respiratory Rate 16 Blood Pressure Blood Pressure [Left Arm] 143/76 H Pulse Oximetry 100 MDM - GI Bleed <ANNELIESE Prescott - Last Filed: 12/04/17 16:22> Lab Data Attestation: I reviewed the patient's lab results. Result diagrams: 12/04/17 13:26 12/04/17 13:26 Lab Results 12/04/17 12/04/17 12/04/17 Range/Units 13:26 13:26 13:26 WBC 5.4 (4.5-11.0) X10^3/uL RBC 3.79 L (4.5-5.9) X10^6/uL Hgb 10.9 L (13.5-17.5) g/dL Hct 33.4 L (41-53) % MCV 88.0 (80-100) fL MCH 28.8 (26-34) PG MCHC 32.8 (30-36) % RDW 15.6 H (11.6-14.8) % Plt Count 210 (150-400) X10^3/uL Neut % (Auto) 65.2 (50-75) % Lymph % (Auto) 25.1 (25-40) % Tucker % (Auto) 6.9 (3-14) % Eos % (Auto) 1.8 L (2-4) % Baso % (Auto) 1.0 (0-2) % Neut # (Auto) 3600 (5616-0617) /uL PT 11.5 (10.1-12.7) SECONDS INR 1.1 (0.9-1.3) APTT 27 (26.4-36.2) SECONDS Sodium (137-145) mmol/L Potassium (3.4-5.1) mmol/L Chloride (98-107) mmol/L Carbon Dioxide (22-32) mmol/L BUN (9-20) mg/dL Creatinine (0.66-1.25) mg/dL Estimated GFR (>60) mL/min BUN/Creatinine Ratio (6-22) Glucose (80-110) mg/dL Calcium (8.4-10.2) mg/dL Total Bilirubin (0.2-1.3) mg/dL AST (17-59) IU/L ALT (21-72) IU/L Alkaline Phosphatase (38-126) U/L Total Protein (6.3-8.2) g/dL Albumin (3.5-5.0) g/dL Globulin (1.7-4.1) g/dL Albumin/Globulin Ratio (1.0-2.8) Amylase 73 (30-110) U/L Lipase 51 (23-300) U/L Urine Color Urine Appearance Urine pH (4.5-8.0) Ur Specific Kersey (1.000-1.035) Urine Protein (Negative) Urine Glucose (UA) (Normal) g/dL Urine Ketones (NEGATIVE) Urine Occult Blood (Negative) Urine Nitrate (Negative) Urine Bilirubin (NEGATIVE) Urine Urobilinogen (0.2) E.U./dL Ur Leukocyte Esterase (NEGATIVE) Urine RBC (0-5/HPF) Urine WBC (0-5/HPF) Ur Squamous Epith Cells Urine Bacteria (None) Ur Culture Indicated? Micro UA Comment Blood Type Antibody Screen 12/04/17 12/04/17 12/04/17 Range/Units 13:26 13:26 14:35 WBC (4.5-11.0) X10^3/uL RBC (4.5-5.9) X10^6/uL Hgb (13.5-17.5) g/dL Hct (41-53) % MCV (80-100) fL MCH (26-34) PG MCHC (30-36) % RDW (11.6-14.8) % Plt Count (150-400) X10^3/uL Neut % (Auto) (50-75) % Lymph % (Auto) (25-40) % Tucker % (Auto) (3-14) % Eos % (Auto) (2-4) % Baso % (Auto) (0-2) % Neut # (Auto) (5796-1806) /uL PT (10.1-12.7) SECONDS INR (0.9-1.3) APTT (26.4-36.2) SECONDS Sodium 140 (137-145) mmol/L Potassium 3.8 (3.4-5.1) mmol/L Chloride 104 (98-107) mmol/L Carbon Dioxide 27 (22-32) mmol/L BUN 17 (9-20) mg/dL Creatinine 0.90 (0.66-1.25) mg/dL Estimated GFR > 60.0 (>60) mL/min BUN/Creatinine Ratio 18.9 (6-22) Glucose 89 (80-110) mg/dL Calcium 9.2 (8.4-10.2) mg/dL Total Bilirubin 0.6 (0.2-1.3) mg/dL AST 38 (17-59) IU/L ALT 39 (21-72) IU/L Alkaline Phosphatase 62 (38-126) U/L Total Protein 6.8 (6.3-8.2) g/dL Albumin 4.1 (3.5-5.0) g/dL Globulin 2.7 (1.7-4.1) g/dL Albumin/Globulin Ratio 1.5 (1.0-2.8) Amylase (30-110) U/L Lipase (23-300) U/L Urine Color Yellow Urine Appearance Clear Urine pH 5.5 (4.5-8.0) Ur Specific Kersey <=1.005 (1.000-1.035) Urine Protein Negative (Negative) Urine Glucose (UA) Negative (Normal) g/dL Urine Ketones Negative (NEGATIVE) Urine Occult Blood Negative (Negative) Urine Nitrate Negative (Negative) Urine Bilirubin Negative (NEGATIVE) Urine Urobilinogen 0.2 (0.2) E.U./dL Ur Leukocyte Esterase Negative (NEGATIVE) Urine RBC None seen (0-5/HPF) Urine WBC None seen (0-5/HPF) Ur Squamous Epith Cells 0-1 /hpf Urine Bacteria None seen (None) Ur Culture Indicated? Cult not indicated Micro UA Comment Not Reportable Blood Type O Positive Antibody Screen Negative Imaging Data CT scan - abdomen: Radiologist's impression: View Report History [address] [address] [address] Scan Report Signed Patient: Colt Richardson MR#: [id number] : 1955 Acct:[id number] Age/Sex: 62 / M Date of Service: 12/04/17 Loc: ED Accession Number: [id number] Procedure: CT abdomen pelvis w con Ordering Provider: Yesenia Martines [facility]- PROCEDURE: CT ABDOMEN PELVIS W CON INDICATIONS: Left lower quadrant abdominal pain, bright red blood per rectum TECHNIQUE: After the administration of intravenous contrast, 5 mm thick sections acquired from the diaphragm to the symphysis. 5 mm coronal and sagittal reformats were acquired. For radiation dose reduction, the following was used: automated exposure control, adjustment of mA and/or kV according to patient size. COMPARISON: None. FINDINGS: Image quality: Excellent. ABDOMEN: Lung bases: Lung bases are clear. Heart size is normal. Solid organs: Liver is normal in size and enhancement. Gallbladder appears normal. Biliary system is non dilated. Pancreas enhances normally. Spleen is normal in size and enhancement. No adrenal nodules. Kidneys demonstrate normal size and enhancement, without hydronephrosis. Peritoneum and bowel: Bowel loops demonstrate normal wall thickness and caliber. Normal appendix. Colonic diverticula are scattered with no focal wall thickening or pericolic inflammation. No free fluid or air. Nodes and vessels: No retroperitoneal or mesenteric adenopathy by size criteria. Aorta and inferior vena cava are normal in size. Miscellaneous: No ventral hernias. PELVIS: Genitourinary: Bladder wall thickness is normal. Miscellaneous: No inguinal hernias or adenopathy. Bones: No suspicious bony lesions. No vertebral body compression fractures. Degenerative lumbar disc disease most marked at L5-S1 associated with slight retrolisthesis. IMPRESSION: 1. Colonic diverticulosis without CT evidence of diverticulitis. No colorectal mass is seen to explain hematochezia. Colonoscopic evaluation suggested. 2. Remainder of exam is unremarkable Dictated by: Francois Pizarro M.D. on 12/04/2017 at 14:47 Approved by: Francois Pizarro M.D. on 12/04/2017 at 14:54 MDM Narrative Medical decision making narrative: Patient presents with reported bright red blood per rectum. Unfortunately I cannot acquire enough of a stool sample on rectal exam for Hemoccult. His labs are significant for a low H&H however they are not critically low. Given the patient's history of colon polyps, I contacted Dr. Santiago for possible admission for scope. Given that his amount of bleeding is significant enough to be running down his legs, combined with his history of colon polyps, I feel a colonoscopy would be better to be performed sooner rather than later. The patient was admitted to observation status under Dr. Santiago. I spoke with Dr. Yo who kindly agreed to perform a scope tomorrow morning. I discussed with Dr. Santiago starting colonoscopy prep as soon as possible. The patient is are in agreement with this admission and have no questions or concerns at this point time. <Nahomi Moon, DO - Last Filed: 12/08/17 00:38> Lab Data Lab Results 12/04/17 12/04/17 12/04/17 Range/Units 13:26 13:26 13:26 WBC 5.4 (4.5-11.0) X10^3/uL RBC 3.79 L (4.5-5.9) X10^6/uL Hgb 10.9 L (13.5-17.5) g/dL Hct 33.4 L (41-53) % MCV 88.0 (80-100) fL MCH 28.8 (26-34) PG MCHC 32.8 (30-36) % RDW 15.6 H (11.6-14.8) % Plt Count 210 (150-400) X10^3/uL Neut % (Auto) 65.2 (50-75) % Lymph % (Auto) 25.1 (25-40) % Tucker % (Auto) 6.9 (3-14) % Eos % (Auto) 1.8 L (2-4) % Baso % (Auto) 1.0 (0-2) % Neut # (Auto) 3600 (5946-5074) /uL PT 11.5 (10.1-12.7) SECONDS INR 1.1 (0.9-1.3) APTT 27 (26.4-36.2) SECONDS Sodium (137-145) mmol/L Potassium (3.4-5.1) mmol/L Chloride (98-107) mmol/L Carbon Dioxide (22-32) mmol/L BUN (9-20) mg/dL Creatinine (0.66-1.25) mg/dL Estimated GFR (>60) mL/min BUN/Creatinine Ratio (6-22) Glucose (80-110) mg/dL Calcium (8.4-10.2) mg/dL Total Bilirubin (0.2-1.3) mg/dL AST (17-59) IU/L ALT (21-72) IU/L Alkaline Phosphatase (38-126) U/L Total Protein (6.3-8.2) g/dL Albumin (3.5-5.0) g/dL Globulin (1.7-4.1) g/dL Albumin/Globulin Ratio (1.0-2.8) Amylase 73 (30-110) U/L Lipase 51 (23-300) U/L Urine Color Urine Appearance Urine pH (4.5-8.0) Ur Specific Kersey (1.000-1.035) Urine Protein (Negative) Urine Glucose (UA) (Normal) g/dL Urine Ketones (NEGATIVE) Urine Occult Blood (Negative) Urine Nitrate (Negative) Urine Bilirubin (NEGATIVE) Urine Urobilinogen (0.2) E.U./dL Ur Leukocyte Esterase (NEGATIVE) Urine RBC (0-5/HPF) Urine WBC (0-5/HPF) Ur Squamous Epith Cells Urine Bacteria (None) Ur Culture Indicated? Micro UA Comment Blood Type Antibody Screen 12/04/17 12/04/17 12/04/17 Range/Units 13:26 13:26 14:35 WBC (4.5-11.0) X10^3/uL RBC (4.5-5.9) X10^6/uL Hgb (13.5-17.5) g/dL Hct (41-53) % MCV (80-100) fL MCH (26-34) PG MCHC (30-36) % RDW (11.6-14.8) % Plt Count (150-400) X10^3/uL Neut % (Auto) (50-75) % Lymph % (Auto) (25-40) % Tucker % (Auto) (3-14) % Eos % (Auto) (2-4) % Baso % (Auto) (0-2) % Neut # (Auto) (6843-9413) /uL PT (10.1-12.7) SECONDS INR (0.9-1.3) APTT (26.4-36.2) SECONDS Sodium 140 (137-145) mmol/L Potassium 3.8 (3.4-5.1) mmol/L Chloride 104 (98-107) mmol/L Carbon Dioxide 27 (22-32) mmol/L BUN 17 (9-20) mg/dL Creatinine 0.90 (0.66-1.25) mg/dL Estimated GFR > 60.0 (>60) mL/min BUN/Creatinine Ratio 18.9 (6-22) Glucose 89 (80-110) mg/dL Calcium 9.2 (8.4-10.2) mg/dL Total Bilirubin 0.6 (0.2-1.3) mg/dL AST 38 (17-59) IU/L ALT 39 (21-72) IU/L Alkaline Phosphatase 62 (38-126) U/L Total Protein 6.8 (6.3-8.2) g/dL Albumin 4.1 (3.5-5.0) g/dL Globulin 2.7 (1.7-4.1) g/dL Albumin/Globulin Ratio 1.5 (1.0-2.8) Amylase (30-110) U/L Lipase (23-300) U/L Urine Color Yellow Urine Appearance Clear Urine pH 5.5 (4.5-8.0) Ur Specific Kersey <=1.005 (1.000-1.035) Urine Protein Negative (Negative) Urine Glucose (UA) Negative (Normal) g/dL Urine Ketones Negative (NEGATIVE) Urine Occult Blood Negative (Negative) Urine Nitrate Negative (Negative) Urine Bilirubin Negative (NEGATIVE) Urine Urobilinogen 0.2 (0.2) E.U./dL Ur Leukocyte Esterase Negative (NEGATIVE) Urine RBC None seen (0-5/HPF) Urine WBC None seen (0-5/HPF) Ur Squamous Epith Cells 0-1 /hpf Urine Bacteria None seen (None) Ur Culture Indicated? Cult not indicated Micro UA Comment Not Reportable Blood Type O Positive Antibody Screen Negative Discharge Plan Departure Patient Disposition: Admitted as Observation Clinical Impression: GI (gastrointestinal bleed) Discharge Date/Time: 12/04/17 16:37 Interventions: ED Discharge Assessment Last Done: 12/04/17 16:35 Referrals: José Miguel Yo MD [Physician] - 1 Week (CALL FOR FOLLOW UP APPOINTMENT IN ONE WEEK ) Admit Date/Time: 12/04/17 16:24 Admit Provider: Stacie Santiago <Nahomi Moon DO - Last Filed: 12/08/17 00:38> Cosign ED Attending Jordanature Attestation: I was immediately available in the department for consultation. Documentation has been reviewed. I agree with assessment and plan.
[2017-12-04 13:46] LABS: Add Manual Diff / Slide Review NO; Eosinophils Percent Auto 1.8 % (2-4); Hematocrit 33.4 % (41-53); Hemoglobin 10.9 g/dL (13.5-17.5); Lymphocytes Percent Auto 25.1 % (25-40); Mean Corpuscular HGB Conc 32.8 % (30-36); Mean Corpuscular Hemoglobin 28.8 PG (26-34); Monocytes Percent Auto 6.9 % (3-14); Neutrophils Absolute Auto 3600 /uL (3000-5900); Neutrophils Percent Auto 65.2 % (50-75); Platelet Count 210 X10^3/uL (150-400); Red Blood Cell Count 3.79 X10^6/uL (4.5-5.9); Red Cell Distribution Width 15.6 % (11.6-14.8); White Blood Cell Count 5.4 X10^3/uL (4.5-11.0)
[2017-12-04 13:55] LABS: Amylase 73 U/L (30-110); Lipase 51 U/L (23-300)
[2017-12-04 13:57] LABS: Alanine Aminotransferase 39 IU/L (21-72); Albumin 4.1 g/dL (3.5-5.0); Albumin Globulin Ratio 1.5 (1.0-2.8); Alkaline Phosphatase 62 U/L (38-126); Aspartate Aminotransferase 38 IU/L (17-59); BUN Creatinine Ratio 18.9 (6-22); Bilirubin Total 0.6 mg/dL (0.2-1.3); Blood Urea Nitrogen 17 mg/dL (9-20); Calcium 9.2 mg/dL (8.4-10.2); Carbon Dioxide 27 mmol/L (22-32); Chloride 104 mmol/L (98-107); Estimated Glomerular Filt Rate > 60.0 mL/min (>60); Globulin 2.7 g/dL (1.7-4.1); Glucose 89 mg/dL (80-110); Potassium 3.8 mmol/L (3.4-5.1); Sodium 140 mmol/L (137-145); Total Protein 6.8 g/dL (6.3-8.2)
[2017-12-04 13:58] LABS: HEMOLYSIS < 15 (0-50); INR 1.1 (0.9-1.3); Prothrombin Time 11.5 SECONDS (10.1-12.7)
[2017-12-04 14:01] LABS: PTT Partial Thromboplastin Tim 27 SECONDS (26.4-36.2)
[2017-12-04] MEDS: SODIUM CHLORIDE 0.9% 1,000 ML 1000 ML IV (14:06)
[2017-12-04] MEDS: methylPREDNISolone 125 MG/2 ML VIAL IV (14:08)
[2017-12-04] MEDS: diphenhydrAMINE 50 MG/ML VIAL IV (14:08)
[2017-12-04 14:42] LABS: Bacteria Urine None Seen; RBC Urine None Seen (0-5/HPF); WBC Urine None Seen (0-5/HPF)
[2017-12-04 14:43] LABS: Appearance Urine UA CLEAR; Bilirubin Urine UA NEGATIVE (NEGATIVE); Color Urine UA YELLOW; Glucose Urine UA NEGATIVE (Normal); Ketones Urine UA NEGATIVE (NEGATIVE); Leukocyte Esterase Urine UA NEGATIVE (NEGATIVE); Nitrite Urine UA Negative (Negative); Occult Blood Urine UA NEGATIVE (Negative); Protein Urine UA NEGATIVE (Negative); Specific Gravity Urine UA <=1.005 (1.000-1.035); Urobilinogen Urine UA 0.2 E.U./dL (0.2); pH Urine UA 5.5 (4.5-8.0)
[2017-12-04 15:13] LABS: Squamous Epithelial Cell Urine 0-1 /HPF
[2017-12-04 15:14] LABS: Culture Indicated Urine Cult Not Indicated
--- NOTE | 2017-12-04 17:42 | P.HP_ITS ---
History of Present Illness Date Patient Seen: 12/04/17 Time Patient Seen: 17:39 Chief complaint: PASSING BLOODY STOOL Narrative: Patient is a 62-year-old male with a prior history of rectal bleeding due to hemorrhoids. He has had 3 colonoscopies. He has a history of colon polyps. One was precancerous and a repeat colonoscopy was done about a year and half ago. Patient states he was well until about 2 weeks prior to admission. He developed profuse rectal bleeding. Yesterday he had a recurrence rectal bleeding. He denies any crampy abdominal pain. He had some mild left lower quadrant pain which is resolved. He has had no fever or chills. He had no nausea vomiting or hematemesis. The patient presented to the emergency department for further evaluation. He is admitted to the hospital for a colonoscopy and evaluation of rectal bleeding. He denies any shortness of breath or chest pain. He has had no headache blurred vision or double vision. No dysuria hematuria or pyuria. He denies any joint pains. No weight loss or weight gain. He has had no lower extremity edema. No rashes. Patient History Medical History Colon polyp, hyperplastic (Acute) Surgical History History of vasectomy Family & Social History Tobacco & Substance use: Smoking Status Never smoker Substance Use Type does not use Meds Home Medications Medication Instructions Recorded Confirmed Type ascorbic acid (vitamin C) 1,000 mg PO DAILY #0 05/23/16 12/04/17 History Allergies Allergy/AdvReac Type Severity Reaction Status Date / Time promethazine [PROMETHAZINE] AdvReac Severe Agitated Verified 12/04/17 12:45 Fidgety Review of Systems Review of Systems All systems reviewed & are unremarkable except as noted in HPI and below Exam Vital Signs (past 8 hours): - 12/04/17 12:45 12/04/17 14:10 12/04/17 14:44 Temperature 98.8 F Pulse Rate 80 85 76 Respiratory Rate 16 18 18 Blood Pressure 144/80 H Blood Pressure [Left Arm] 164/94 H 142/72 H Pulse Oximetry 97 99 100 12/04/17 16:20 12/04/17 16:30 Temperature 97.9 F Pulse Rate 72 69 Respiratory Rate 16 16 Blood Pressure 162/89 H Blood Pressure [Left Arm] 143/76 H Pulse Oximetry 100 96 Oxygen Delivery Method Room Air Narrative Exam Narrative: HEENT: NC/AT PERRLA, EOMI, oropharynx clear Neck : supple, no adenopathy Lungs: clear to auscultation CV: RRR nl S1S2 2/6 MAVIS Abd: soft/ non tender non distended, no hepatosplenomegaly Ext: no edema Neuro: non focal Skin: no lesions Psychiatric: normal mood, mentation Objective Labs Result Diagrams: 12/04/17 13:26 12/04/17 13:26 Labs: Laboratory Results - last 24 hr 12/04/17 12/04/17 12/04/17 13:26 13:26 13:26 WBC 5.4 RBC 3.79 L Hgb 10.9 L Hct 33.4 L MCV 88.0 MCH 28.8 MCHC 32.8 RDW 15.6 H Plt Count 210 Neut % (Auto) 65.2 Lymph % (Auto) 25.1 Gibson % (Auto) 6.9 Eos % (Auto) 1.8 L Baso % (Auto) 1.0 Neut # (Auto) 3600 PT 11.5 INR 1.1 APTT 27 Sodium Potassium Chloride Carbon Dioxide BUN Creatinine Estimated GFR BUN/Creatinine Ratio Glucose Calcium Total Bilirubin AST ALT Alkaline Phosphatase Total Protein Albumin Globulin Albumin/Globulin Ratio Amylase 73 Lipase 51 Urine Color Urine Appearance Urine pH Ur Specific [place] Urine Protein Urine Glucose (UA) Urine Ketones Urine Occult Blood Urine Nitrate Urine Bilirubin Urine Urobilinogen Ur Leukocyte Esterase Urine RBC Urine WBC Ur Squamous Epith Cells Urine Bacteria Ur Culture Indicated? Micro UA Comment Blood Type Antibody Screen 12/04/17 12/04/17 12/04/17 13:26 13:26 14:35 WBC RBC Hgb Hct MCV MCH MCHC RDW Plt Count Neut % (Auto) Lymph % (Auto) Gibson % (Auto) Eos % (Auto) Baso % (Auto) Neut # (Auto) PT INR APTT Sodium 140 Potassium 3.8 Chloride 104 Carbon Dioxide 27 BUN 17 Creatinine 0.90 Estimated GFR > 60.0 BUN/Creatinine Ratio 18.9 Glucose 89 Calcium 9.2 Total Bilirubin 0.6 AST 38 ALT 39 Alkaline Phosphatase 62 Total Protein 6.8 Albumin 4.1 Globulin 2.7 Albumin/Globulin Ratio 1.5 Amylase Lipase Urine Color Yellow Urine Appearance Clear Urine pH 5.5 Ur Specific [place] <=1.005 Urine Protein Negative Urine Glucose (UA) Negative Urine Ketones Negative Urine Occult Blood Negative Urine Nitrate Negative Urine Bilirubin Negative Urine Urobilinogen 0.2 Ur Leukocyte Esterase Negative Urine RBC None seen Urine WBC None seen Ur Squamous Epith Cells 0-1 /hpf Urine Bacteria None seen Ur Culture Indicated? Cult not indicated Micro UA Comment Not Reportable Blood Type O Positive Antibody Screen Negative Assessment & Plan (1) History of vasectomy: Current visit: No Status: None (2) Colon polyp, hyperplastic: Current visit: Yes Status: Acute Plan: Assessment/Plan Narrative: GI Bleed- suspect lower Will prep colon in antiicpation for colonoscopy in am Recheck labs in the morning
[2017-12-04] MEDS: MAGNESIUM CITRATE 300 ML SOLUTION PO (18:31)
[2017-12-04] MEDS: PEG3350/SOD SULF,BICARB,CL/KCL 4,000 ML SOLUTION 2000 ML PO (18:32)
[2017-12-04] MEDS: DEXTROSE 5%-0.45% NS 1,000 ML 100 ML IV (18:35)
--- NOTE | 2017-12-04 18:59 | PC.NURSE ---
Addendum entered by Laura Rodriguez R.N. 12/04/17 21:25: Pt denies any discomfort. Working on the golytly. Has 150cc loose stool w/tinges of blood present. Tele showing NSR per ICU staff. Conditiion remains essentially unchanged. Call light w/in reach. Tamiko in room. Continue w/plan of care. Original Note: Pt arrived from ER @ 1630. Awake/alert. Denies discomfort. IV D51/2NS @ 100cc/hr infusing into the RFA via pump w/o incidence. Started on Mg citrate and golytly as per orders. Colonoscopy @ 1000 tomorrow. No evidence of bleeding currently. SCD in place. Call light w/in reach.
[2017-12-05] VITALS (11 sets, daily range): BP systolic 84–139; BP diastolic 46–73; PULSE 43–81; RESP 15–20; TEMP 35.9–37.2; O2SAT 96–100
--- NOTE | 2017-12-05 | PATH_ITS ---
[facility] Accession Number: [id number] . 01 Material submitted: . PART A: RIGHT POSTERIOR HEMORRHOID PART B: LEFT LATERAL HEMORRHOID . 02 Diagnosis: A. Right Posterior Hemorrhoid, Excision: Consistent with hemorrhoids. Negative for dysplasia or malignancy. . B. Left Lateral Hemorrhoid, Excision: Consistent with hemorrhoids. Negative for dysplasia or malignancy. [facility]/12/06/2017 . 02 Electronically signed: . Omid Collins MD, PhD, Pathologist NPI- [id number] . 01 Gross description: . Received two formalin-filled containers, both labeled with the patient's name: . A. In a container labeled right posterior hemorrhoid, the specimen consists of a blue-vogt dome-shaped portion of tissue which measures 3.5 x 2.5 x 1.5 cm. The specimen is inked blue. Two delivery representative sections are submitted in cassettes A1 and A2. B. In a container labeled left lateral hemorrhoid, the specimen consists of a blue-vogt to vogt-brown portion of tissue which measures 4.0 x 3.5 x 1.5 cm. The specimen is inked blue. Two delivery representative sections are submitted in cassettes B1 and B2. (DC:[id number]) /FRR . 02 Pathologist provided ICD-10: K64.9 . 02 CPT . 279859, [id number] Performed at: 01 [facility] [address], [place], [place] [id number] MD Amish Rowan MD Phone: [phone] Performed at: [facility] [address] [place], [place] [id number] MD Breezy Jose MD Phone: [phone]
[2017-12-05] MEDS: DEXTROSE 5%-0.45% NS 1,000 ML 100 ML IV (06:32)
--- NOTE | 2017-12-05 08:27 | P.CONS_ITS ---
History of Present Illness Date Patient Seen: 12/05/17 Time Patient Seen: 07:26 Chief complaint: PASSING BLOODY STOOL Reason for consult: Very pleasant 62 yo male with multiple year h/o BRBPR Requesting provider: Yesenia Martines Narrative: Pt is a very pleasant 62 yo male who works at [employer] in [place] seen today with his . He reports he's had a colonoscopy in past 1-2 years and total of 3 in past 15-20 years and last they found 4 polyps all benign. I do not have those records today. He reports multiple year, up to 10, of spotting bleeding, always bright blood on paper and in toilet, told from hemorrhoids. Over past several weeks he's had bright red blood dripping down his leg at times usually associated with bowel movements. His hct was low, but not critically low. He does understand that he may need a hemorrhoidectomy today and consents to both. He understand risks and benefits of perforation, missed lesion, anal stricture, recurrence of hemorrhoid, bleeding, discomfort, infection, and that I will not likely be able to remove all hemorrhoidal tissue today but in fact this may require 2-3 operations if there are mutliple large areas of dilated veins. I described the pathophysicology of hemorrhoids, how they cause bleeding and the remedies and how to avoid causing them in the future. I recommended higher fiber diet and less time on the toilet, [facility] Medical History Colon polyp, hyperplastic (Acute) Surgical History History of vasectomy Family History Brother Prostate cancer Father CAD (coronary artery disease) Mother Age: 89 Hypertension Social History Smoking Status: Never smoker Meds Home Medications Medication Instructions Recorded Confirmed Type ascorbic acid (vitamin C) 1,000 mg PO DAILY #0 05/23/16 12/04/17 History Allergies Allergy/AdvReac Type Severity Reaction Status Date / Time promethazine [PROMETHAZINE] AdvReac Severe Agitated Verified 12/04/17 12:45 Fidgety Review of Systems Review of Systems All systems reviewed & are unremarkable except as noted in HPI and below Exam Vital Signs (past 8 hours): - 12/05/17 06:16 12/05/17 07:46 Temperature 97.6 F 98.3 F Pulse Rate 75 60 Respiratory Rate 18 15 Blood Pressure 127/68 H 139/69 H Pulse Oximetry 98 99 Oxygen Delivery Method Room Air Oxygen Flow Rate 0 Const General: cooperative, healthy appearing, comfortable, well developed and well groomed [facility] Head: normal to inspection Ears: hearing grossly normal bilaterally Nose: external nose normal Eyes General: appearance normal, both eyes and all related structures Sclera: sclerae normal Neck Neck: normal visual inspection Chest Chest: normal inspection of the chest Resp Effort & Inspection: normal respiratory effort Auscultation: clear to auscultation bilaterally, no crackles, no rales, no rhonchi and no wheezes Cardio Rate: regular rate Rhythm: regular rhythm Heart Sounds: S1 normal and S2 normal GI Inspection: normal to inspection Palpation: soft Auscultation: normal bowel sounds Skin General: no rashes or lesions noted Neuro General: alert, awake, oriented x3 and moves all extremities Extrem Right upper extremity: normal to inspection Psych Mental Status: mental status grossly normal Mood: congruent mood Thought Process: normal Thought Content: normal Judgment: judgment good Objective Labs Result Diagrams: 12/04/17 13:26 12/04/17 13:26 Labs: Laboratory Results - last 24 hr 12/04/17 12/04/17 12/04/17 13:26 13:26 13:26 WBC 5.4 RBC 3.79 L Hgb 10.9 L Hct 33.4 L MCV 88.0 MCH 28.8 MCHC 32.8 RDW 15.6 H Plt Count 210 Neut % (Auto) 65.2 Lymph % (Auto) 25.1 [place]ila % (Auto) 6.9 Eos % (Auto) 1.8 L Baso % (Auto) 1.0 Neut # (Auto) 3600 PT 11.5 INR 1.1 APTT 27 Sodium Potassium Chloride Carbon Dioxide BUN Creatinine Estimated GFR BUN/Creatinine Ratio Glucose Calcium Total Bilirubin AST ALT Alkaline Phosphatase Total Protein Albumin Globulin Albumin/Globulin Ratio Amylase 73 Lipase 51 Urine Color Urine Appearance Urine pH Ur Specific [place] Urine Protein Urine Glucose (UA) Urine Ketones Urine Occult Blood Urine Nitrate Urine Bilirubin Urine Urobilinogen Ur Leukocyte Esterase Urine RBC Urine WBC Ur Squamous Epith Cells Urine Bacteria Ur Culture Indicated? Micro UA Comment Blood Type Antibody Screen 12/04/17 12/04/17 12/04/17 13:26 13:26 14:35 WBC RBC Hgb Hct MCV MCH MCHC RDW Plt Count Neut % (Auto) Lymph % (Auto) [place] % (Auto) Eos % (Auto) Baso % (Auto) Neut # (Auto) PT INR APTT Sodium 140 Potassium 3.8 Chloride 104 Carbon Dioxide 27 BUN 17 Creatinine 0.90 Estimated GFR > 60.0 BUN/Creatinine Ratio 18.9 Glucose 89 Calcium 9.2 Total Bilirubin 0.6 AST 38 ALT 39 Alkaline Phosphatase 62 Total Protein 6.8 Albumin 4.1 Globulin 2.7 Albumin/Globulin Ratio 1.5 Amylase Lipase Urine Color Yellow Urine Appearance Clear Urine pH 5.5 Ur Specific [place] <=1.005 Urine Protein Negative Urine Glucose (UA) Negative Urine Ketones Negative Urine Occult Blood Negative Urine Nitrate Negative Urine Bilirubin Negative Urine Urobilinogen 0.2 Ur Leukocyte Esterase Negative Urine RBC None seen Urine WBC None seen Ur Squamous Epith Cells 0-1 /hpf Urine Bacteria None seen Ur Culture Indicated? Cult not indicated Micro UA Comment Not Reportable Blood Type O Positive Antibody Screen Negative Assessment & Plan (1) BRBPR (bright red blood per rectum): Problem details: Plan for colonoscopy/sigmoidoscopy today. If I can not do the entire scope I discussed this as OK as he has a recent colonoscopy in the last 24 months. If I find the source I will perform a hemorroidectomy and he is consented for both a colonoscopy and hemorroidectomy. He and his ask questions, and I reviewed risks of infection, bleeding recurrence, perforation, need for recovery , packing in the anus post op and sitz baths after surgery. Current visit: Yes Status: Acute Time Spent With Patient Time with patient: Greater than 35 minutes
--- NOTE | 2017-12-05 09:11 | CM.DANOTE ---
Discharge Planning/Care Management DCP: assessment: case received, EMR reviewed and met with pt and his at 0900. Introduced self and role. Pt is a 62 year old female who admitted yesterday to care of hospitalist Dr. Santiago. Surgeon consulted: Dr. Mili Yo. Procedure is planned for today at 1030. Payer: [employer]. PCP: Eloina Estrada P: follow prn for any d/c needs. None are identified at this time. CM Discharge Assessment Start: 12/05/17 09:04 Freq: Status: Active Protocol: Document 12/05/17 09:04 ITV (Rec: 12/05/17 09:06 [email or web address] [id number]) Discharge Planning Assessment History Provided By Patient Family Member Medical Record Independent with ADL's Yes Is patient alert and oriented? Yes Comment pt scheduled for surgery today Review Status In Process Next Review Type Continued Stay Review Document 12/05/17 09:09 ITV (Rec: 12/05/17 09:09 [email or web address] [id number]) Discharge Planning Assessment History Provided By Patient Family Member Medical Record Independent with ADL's Yes Is patient alert and oriented? Yes Comment pt scheduled for surgery today , hemmroidectomy Review Status In Process Next Review Type Continued Stay Review Document 12/05/17 09:10 ITV (Rec: 12/05/17 09:11 ITV [id number]) Discharge Planning Assessment History Provided By Patient Family Member Medical Record Independent with ADL's Yes Is patient alert and oriented? Yes Comment pt scheduled for surgery today , hemmroidectomy Review Status In Process Next Review Type Continued Stay Review
--- NOTE | 2017-12-05 10:30 | SUR.OPER ---
Lithotomy on padded OR bed, head on pillow, arms secured on padded arm boards at <90 degrees abduction. Legs secured in padded yellow fins stirrups.
--- NOTE | 2017-12-05 10:34 | SUR.OPER ---
SEE ANESTHESIA NOTES
--- NOTE | 2017-12-05 11:03 | PC.NURSE ---
Addendum entered by Korin Naik R.N. 12/05/17 15:27: DC - per Dr. Garcia, he is assuming dc of pt from , dc orders now in, pt to dc home if lacy po and no n/v, reported to MD earlier nausea resolved after zofran and pt is now asleep. Original Note: Addendum entered by Korin Naik R.N. 12/05/17 13:31: POST OP - arrived via bed from pacu, pt hr now 44 - 48, bp 109/53, rr 14, ra 100%, some mild discomfort rectal area, 4x4 with some bright blood, pt felt urge bm, did sit up to dangle, advised pt did not want to ambul to br, did tsf to bsc w/flatus, once up became nauseated, noted to have no transfer orders, spoke to who did state he had completed in surg, verified with Usman in info sytems no orders ready to tsf, they were completed here on floor and admin 4mg iv zofran that did help resolve nausea, and later started with sips broth,replaced 4x4 and mesh panties, no stool, some bright serosang rectal discharge, replaced 4x4 and thenret to bed, pt was tremulous, given warm blanket, vs stable, hr 57, rr 16, bp 122/57, verified tele dc'd. Original Note: AM NOTE - alert, no abd pain or cramping, did complete golytely prep a ordered and has thin, yellow, liq stools earlier, hr reg 60, ra 96%, surgeon in this am and plan for colonoscopy this am.
[2017-12-05] MEDS: BUPIVACAINE 0.5% W/ EPI (PF) VIAL 30 ML INJ (11:32)
[2017-12-05] MEDS: DIBUCAINE 1% OINT 28 GM 1 APPLIC TOP (11:34)
--- NOTE | 2017-12-05 11:49 | P.OP_ITS ---
Operative Date/Time/Diagnoses Date of procedure: 12/05/17 Time of procedure: 11:25 Pre-op diagnosis: Rectal bleeding with hemorroids Post-op diagnosis: other (Severe internal hemorrhoids Left lateral and Right posterior. ) Procedure & Clinicians Procedure: Left lateral hemorrhoidectomy closed Right posterior hemorrhoidectomy closed Sigmoidoscopy Same procedure as scheduled: Yes Indications: Rectal bleeding Surgeon: José Miguel oY Click Yes if Unassisted: Yes Anesthesia Type: General Operative Notes Findings: Mild diverticulosis Large internal hemorrhoids with stigmata of prior bleeding right posterior and left lateral. Larger dilated hemorrhoidal veins throughout. Closure Type: primary Specimen(s): other (1. R posterior hemorrhoid. 2. left Lateral hemorrhoid) Implants & Drains: Estimated Blood Loss (mL): 25 Procedure in detail: After informed consent with the patient and the patient's Tamiko, including but not limited to risks and benefits of sigmoid or colonoscopy, hemorrhoidectomy including infection bleeding recurrence, rarely pelvic sepsis, and anal stenosis. They wish to proceed. After satisfactory general anesthesia with the laryngeal mask the patient was placed in lithotomy position safety time-out was completed and prep and drape was performed. Digital rectal exam showed obvious right posterior large external hemorrhoid that was protruding and herniating out the anal verge. Additionally slightly smaller but still quite large left lateral hemorrhoid pile was seen. Lubricated colonoscope was placed into the anus and passed up the rectum and advanced to the sigmoid colon worse mild diverticulosis was found there was no evidence of bleeding no evidence of luminal blood or bright red blood. The colonoscopy or sigmoidoscopy was normal to 80 cm and at this point because we had an obvious source in his history of normal colonoscopy within the past 24 months I completed the sigmoidoscopy by pulling back to 20 cm and retroflexed thing seeing into mild internal hemorrhoids from this view with no obvious rectal mass. I then removed the air and proceed with hemorrhoidectomy. Using the speculum and the retractors moved well lubricated the right posterior hemorrhoid was grasped with an Allis clamp and the vascular pedicle was sutured with a 0 gut which was ligated it and got was then changed to a 2 row of Vicryl suture I then proceeded to take a small wedge of anoderm and dissect out the large vascular dilated vein all the way to the suture ligature I placed a clamp across the prior cross the pedicle and removed the specimen passing it off. I then closed the anal mucosa in a running suture and transferred to submucosal sutures at the anoderm. There was some bleeding at the vascular pedicle and I Arsh sutured with a [id number] 3 0 Vicryl suture which controlled the bleeding well. Re-evaluation of the anal canal showed a large left lateral hemorrhoidal pile. Suture ligature of the base of the vascular pedicle was performed with 2 0 Vicryl suture and in a similar fashion the anoderm was opened and avoiding the sphincter muscle the vascular structure was dissected away from the anoderm and preserving anal skin but removing extraneous mucosa we removed the large dilated hemorrhoid. Clamp was placed and the hemorrhoidal tissue was removed and passed off as a 2nd specimen. I then ran the anoderm closed with the 2 0 Vicryl and then switch to submucosal sutures closing the anoderm. Recheck for bleeding showed non I did place a 2nd 3 0 Vicryl suture across this pedicle as well. Pack of local anesthetic covered Gelfoam was placed in the anorectal canal. Local anesthetic block was performed of the anus at 9 and 3 o'clock using a total of 25 cc of 0.5% xylocaine with epinephrine. The patient tolerated the procedure well was transferred to the PACU breathing on his own volition with Anesthesia liaison. Complications: none Condition: stable Disposition: PACU Plan for aftercare: He will be given a Medrol Dosepak, Zofran, Sitz baths, Dilaudid, and discharged to home with careful instructions for follow-up specifically for nausea vomiting and increasing abdominal pain fever or chills. He also understands diet regulation and modification with increasing fiber as well for diverticulosis and to follow up with his primary care for further questions or concerns in addition.
--- NOTE | 2017-12-05 12:20 | P.DS_ITS ---
History of Present Illness Date Patient Seen: 12/05/17 Time Patient Seen: 12:15 Chief complaint: SURGERY Discharge Providers Primary care physician: Ivon Estrada PA-C Discharge provider: José Miguel Yo MD Summary Discharge Diagnosis: Bleeding hemorrhoids Hospital Course: Patient was admitted from the ER on the 04 of December was bowel prepped and taken to the OR on the 05 of December where sigmoidoscopy showed mild diverticulosis and large external hemorrhoids which were prolapsing and had stigmata of bleeding. Hemorrhoidectomy of the right posterior and left lateral hemorrhoidal piles was performed and he was transferred to the floor and discharged uneventfully. Status at Discharge Functional status at discharge: independent ambulation Overall status at discharge: patient is back to baseline Time Spent with Patient Greater than 30 minutes Time spent discussing smoking cessation with patient: 3 to 10 minutes Exam Vital Signs (past 8 hours): - 12/05/17 11:34 12/05/17 11:39 12/05/17 11:43 Temperature 97.0 F L Pulse Rate 57 L 51 L 43 L Respiratory Rate 15 15 16 Blood Pressure 116/52 L 115/53 L 85/46 L Pulse Oximetry 97 98 97 12/05/17 11:52 Temperature 96.6 F L Pulse Rate 48 L Respiratory Rate 16 Blood Pressure 84/56 L Pulse Oximetry 97 Oxygen Delivery Method Room Air Narrative Exam Narrative: Patient is seen and examined and there are no changes. Discharge Plan Discharge Plan Patient Disposition: Home, Self-Care Discharge comment: Patient to follow up with Dr Yo in 10-14 days Sitz baths every day Medro dose otto Avoid constipation BID miralax unless diarrhea then back off to once a day Dilaudid only as needed Discharge Med Rec/Prescriptions Prescriptions: New hydromorphone 2 mg tablet 4 mg PO Q4-6H PRN (Reason: pain) Qty: 30 RF: 0 ondansetron 8 mg tablet,disintegrating 8 mg PO TID PRN (Reason: nausea and vomiting) Qty: 10 RF: 0 methylprednisolone [Medrol (Otto)] 4 mg tablets,dose pack See Label Instructions PO PER PKG DIR Qty: 21 RF: 0 Continue ascorbic acid (vitamin C) 1,000 mg Tablet 1,000 mg PO DAILY Qty: 0 RF: 0 Follow up/Referrals: Ivon Estrada PA-C [Primary Care Provider] - 2 Weeks (Follow-up with Dr. Yo or surgical colleague in 7-10 days at [facility]) José Miguel Yo MD [Physician] - Discharge Orders: Discharge (Order); Ordered 12/05/17 Ordered By: José Miguel Yo Provider Discharge Instructions Diet: Diet as Tolerated Diet comment: High fiber diet avoid constipation Activity: Avoid bike riding, heavy lifting and straining for the next 2 weeks Other treatments: Sitz baths daily or twice a day with warm soapy water. Expect some drainage from anus. Called for signs of fever chills severe abdominal pain or increasing malaise. Skin/Wound/Dressing Care Report to your healthcare provider any signs of infection, such as:: chills, fever, night sweats, increased pain and unusual drainage Dressing: There is a PAC in the anorectal canal of Gelfoam which can be flushed down the toilet. Visit Report/Discharge Packet Stand Alone Forms: Surgery Discharge Discharge Data Primary Care Provider: Ivon Estrada Attending Provider: José Miguel Yo
[2017-12-05] MEDS: ONDANSETRON 4 MG/2 ML INJ IV (12:22)
[2017-12-05] MEDS: LACTATED RINGERS 1,000 ML 42 ML IV (12:35)
--- NOTE | 2017-12-05 20:09 | PC.NURSE ---
Addendum entered by Olivia Yarbrough R.N. 12/05/17 23:04: Patient voided quantity sufficient post straight cath. Will be discharged home as per MD order. Original Note: Addendum entered by Olivia Yarbrough R.N. 12/05/17 21:35: 2000: Received call back from Dr. Mcguire, notified regarding voiding status. Obtained order for straight urinary catheter. Per Dr. Mcguire, patient may stay over night until second void post catherization and hold DC order for now. If patient feels comfortable going home after straight cath, he may f/u in the ED if still unable to void. Patient will attempt to void second time and will stay in hospital. Otherwise, VSS, patient is calm, pleasant, and cooperative. 510 ml obtained from straight catherization, clear yellow urine. Original Note: Cristela shift note: 1800: Patient awake and alert, no c/o nausea or vomiting. Tolerating PO intake. Quarter size of rectal bleeding on pad, no active continuous bleeding. No dizziness. Mild ache to rectal area. Patient states has not voided all day, patient returned to floor at noon from colonoscopy. Bladder scanned patient (285 ml). Encouraged fluids, and patient states will attempt once more. At 1950 after 16 oz of fluid, patient unable to void. Second bladder scan (755) States has sensation only. Attempted to call Dr. mcguire at [phone] x 2. Also called exchange as listed on daily call schedule. rate quoting operator stated there was not an available surgeon and only a message for office in the morning was the option for communication. Awaiting for new orders and update MD of clinical change.
--- NOTE | 2017-12-05 23:16 | PC.NURSE ---
Pt voided x 2. D/C instructions given w/apparent understanding. HL D/C'd intact Pt escorted to waiting vehicle by staff in stable condition.
--- NOTE | 2017-12-06 09:19 | CM.DPC ---
DCP Cont: Patient discharged home last pm, no noted issues upon discharge. Kia Guzman RN/[employer]
== END 2017-12-05 23:15 | disposition home or self-care (01) ==
LOC: AC 16:24
PROVIDERS: Surgery; Admitting Provider Internal Medicine; Emergency Provider Nurse Practitioner Family; PCP Physician Assistant; Visit Provider Internal Medicine
PROC: 0DJD8ZZ Inspection of Lower Intestinal Tract, Via Natural or Artificial Opening Endoscopic (ICD-10-PCS; CPT 45378; principal; 2017-12-05 09:45)
PROC: (CPT 46250; 2017-12-05 09:45)
DX: K64.8 Other hemorrhoids (principal); Z86.010 Personal history of colon polyps; K57.30 Diverticulosis of large intestine without perforation or abscess without bleeding
CPT/HCPCS: 46250; 36415; 74177; 80053; 81001; 82150; 83690; 85025; 85610; 85730; 86850; 86900; 86901; 88304; 96361; 96374; 96375; 99283; 99285; G0378; J1200; J2405; J2704; J2930; J3010

== ENCOUNTER → 2020-02-12 09:49 | Outpatient (CLI) | payer OTHER, SELFPAY ==
[2018-01-04 16:14] VITALS: BMI 26.9
[2020-02-13 13:09] LABS: COVID19 Sendout Not Detected (Not Detect)
== END ==
PROVIDERS: PCP Physician Assistant; Visit Provider Physician Assistant
DX: Z11.59 Encounter for screening for other viral diseases (principal)
CPT/HCPCS: 87635

== ENCOUNTER → 2020-03-08 17:56 | Outpatient (CLI) | payer OTHER, SELFPAY ==
[2018-01-04 16:14] VITALS: BMI 26.9
--- NOTE | 2020-03-08 17:59 | DI.RAD.S_ITS ---
PROCEDURE: XR HAND LT MIN 3V INDICATIONS: injury to 4th digit, r/o fracture TECHNIQUE: 3 views of the hands acquired. COMPARISON: None. FINDINGS: Bones: There is a minimally displaced and likely comminuted fracture of the tuft of the 4th distal phalanx. No intra-articular extension is seen. Carpal bones are normally aligned. No suspicious bony lesions. Soft tissues: No suspicious soft tissue calcifications. Soft tissue edema is noted in the distal 4th finger. IMPRESSION: Minimally displaced comminuted fracture of the tuft of the 4th distal phalanx. Dictated by: Panchito Vieira M.D. on 03/08/2020 at 18:14 Approved by: Panchito Vieira M.D. on 03/08/2020 at 18:15
== END ==
PROVIDERS: PCP Physician Assistant; Referring Provider Physician Assistant; Visit Provider Physician Assistant
DX: S62.635A Displaced fracture of distal phalanx of left ring finger, initial encounter for closed fracture (principal); X58.XXXA Exposure to other specified factors, initial encounter
CPT/HCPCS: 73130

== ENCOUNTER → 2020-12-07 14:26 | Outpatient (CLI) | payer OTHER, SELFPAY ==
[2020-12-07 11:07] VITALS: BMI 26.9
[2020-12-07 16:17] LABS: COVID19 -Nasal RAPID Negative (Negative)
== END ==
PROVIDERS: PCP Physician Assistant; Visit Provider Nurse Practitioner
DX: R51.9 Headache, unspecified (principal); Z20.822 Contact with and (suspected) exposure to COVID-19
CPT/HCPCS: 87635

== ENCOUNTER → 2021-01-05 11:13 | Outpatient (CLI) | payer OTHER, SELFPAY ==
[2020-12-07 11:07] VITALS: BMI 26.9
[2021-01-05 13:08] LABS: COVID19 -Nasal RAPID POSITIVE (Negative)
== END ==
PROVIDERS: Visit Provider Physician Assistant
DX: U07.1 COVID-19 (principal)
CPT/HCPCS: 87635

== ENCOUNTER 2022-08-19 22:45 | Emergency (ER) | payer SELFPAY ==
[2020-12-07 11:07] VITALS: BMI 26.9
[2022-08-19 23:11] VITALS: BP 190/88; PULSE 74; RESP 18; TEMP 37.1; O2SAT 100; BMI 26.4
[2022-08-20 00:14] LABS: Bacteria Urine None Seen; Culture Indicated Urine Cult Not Indicated; RBC Urine 30-100/HPF (0-5/HPF); WBC Urine None Seen (0-5/HPF)
[2022-08-20 00:48] LABS: Add Manual Diff / Slide Review NO; Basophils Absolute Auto 100 /uL (0-100); Basophils Percent Auto 0.7 % (0-2); Eosinophils Absolute Auto 100 /uL (0-450); Eosinophils Percent Auto 0.8 % (2-4); Hematocrit 38.7 % (41-53); Hemoglobin 13.3 g/dL (13.5-17.5); Lymphocytes Absolute Auto 1100 /uL (1100-4500); Lymphocytes Percent Auto 13.6 % (25-40); Mean Corpuscular HGB Conc 34.4 % (30-36); Mean Corpuscular Hemoglobin 32.2 PG (26-34); Mean Corpuscular Volume 93.5 fL (80-100); Monocytes Absolute Auto 600 /uL (0-900); Monocytes Percent Auto 7.3 % (3-14); Neutrophils Absolute Auto 6500 /uL (1500-7000); Neutrophils Percent Auto 77.6 % (50-75); Platelet Count 185 X10^3/uL (150-400); Red Blood Cell Count 4.14 X10^6/uL (4.5-5.9); Red Cell Distribution Width 12.6 % (11.6-14.8); White Blood Cell Count 8.4 X10^3/uL (4.5-11.0)
--- NOTE | 2022-08-20 00:48 | ED.GENADULT ---
HPI - General Adult General Chief complaint: Abdominal Pain Stated complaint: Stomach pain, Trouble urinating Time Seen by Provider: 08/20/22 00:15 Source: patient Mode of arrival: Ambulatory Limitations: no limitations History of Present Illness HPI narrative: Patient is a 66-year-old male who is here for evaluation of lower abdominal discomfort and issues with urinating. Stating that he is having hesitancy and also urgency. He states his symptoms started yesterday afternoon/evening. It been consistent since then. No fevers. No back pain. No problems with bowel movement. He stated that he has had a kidney stone in the past but that was about 30 years ago. He did try some Tums prior to arrival which helped some gas that he was having at the time. Related Data Home Medications Medication Instructions Recorded Confirmed ascorbic acid (vitamin C) 1,000 mg 1,000 mg PO DAILY ##0 05/23/16 08/18/21 tablet Previous Rx's Medication Instructions Recorded hydrocodone 5 mg-acetaminophen 325 1 tab PO Q4-6H PRN pain #10 tabs 08/20/22 mg tablet ondansetron 4 mg disintegrating 4 mg PO Q6H PRN nausea and 08/20/22 tablet vomiting #10 tabs tamsulosin 0.4 mg capsule (Flomax) 0.4 mg PO DAILY #14 caps 08/20/22 Allergies Allergy/AdvReac Type Severity Reaction Status Date / Time promethazine [PROMETHAZINE] AdvReac Severe Agitated Verified 08/18/21 17:10 Fidgety Review of Systems Constitutional Constitutional: Reports system reviewed and no additional complaints, except as documented Gastrointestinal Gastrointestinal: Reports system reviewed and no additional complaints, except as documented Genitourinary Genitourinary: Reports system reviewed and no additional complaints, except as documented Hematologic/Lymphatic On Anticoagulants: No Patient History Medical History BPH (benign prostatic hyperplasia) BRBPR (bright red blood per rectum) Cervical spondylosis (~2015) Colon polyp, hyperplastic Finger injury Hyperlipemia Internal hemorrhoids Surgical History History of hemorrhoidectomy History of vasectomy (1987) Family History Brother Prostate cancer Father CAD (coronary artery disease) Mother Age: 94 Hypertension Grandfather No problems noted. Grandmother No problems noted. Social History Smoking Status: Never smoker Smoking Status: Never smoker Substance Use Type: does not use Exam Initial Vital Signs Initial Vital Signs: Vital Signs Temperature 98.8 F 08/19/22 23:11 Pulse Rate 74 08/19/22 23:11 Respiratory Rate 18 08/19/22 23:11 Blood Pressure 190/88 H 08/19/22 23:11 Pulse Oximetry 100 08/19/22 23:11 Oxygen Delivery Method Room Air 08/19/22 23:11 Const General: cooperative, comfortable and No ill appearing HENMT Head: normal to inspection and normocephalic Resp Auscultation: clear to auscultation bilaterally Cardio Rate: regular rate Rhythm: regular rhythm GI Inspection: normal to inspection and non-distended Palpation: soft and tender (Suprapubic region) Back/Spine/Pelvis Back: No CVA tenderness Skin General: no rashes or lesions noted Neuro General: patient alert, patient awake, patient oriented x3 and does not move all extremities Extrem General: capillary refill normal Course Orders Ordered: ED Orders 08/19/22 23:18 Urine Microscopic Stat 08/19/22 23:27 Complete Blood Count AUTO DIFF Stat Comprehensive Metabolic Panel Stat Lipase Stat EKG-12 Lead Stat 08/20/22 00:49 CT kidney ureter bladder (KUB) Stat Ondansetron HCl (Ondansetron 4 Mg Odt) 4 mg PO NOW PRN PRN Reason: Nausea And Vomiting Ondansetron HCl (Ondansetron 4 Mg/2 Ml Inj) 4 mg IV NOW PRN PRN Reason: Nausea And Vomiting Discontinued Medications Hydrocodone Bitart/Acetaminophen (Hydrocodone/Acet 5/325 Prepack) 1 bottle MISC SEEINSTR ONE Stop: 08/20/22 01:56 Ketorolac Tromethamine (Ketorolac 30 Mg/Ml Vial) 30 mg IV NOW ONE Stop: 08/20/22 01:27 Last Admin: 08/20/22 01:31 Dose: 30 mg Documented By: DENTON Ondansetron HCl (Ondansetron 4 Mg Odt Prepack) 1 bottle MISC SEEINSTR ONE Stop: 08/20/22 01:56 Tamsulosin HCl (Tamsulosin 0.4 Mg Capsule) 0.4 mg PO NOW ONE Stop: 08/20/22 01:38 Vital Signs Vital signs: Vital Signs - 8 hr 08/19/22 23:11 Temperature 98.8 F Pulse Rate 74 Respiratory Rate 18 Blood Pressure 190/88 H Pulse Oximetry 100 Oxygen Delivery Method Room Air Medical Decision Making Lab Data Lab results reviewed: Yes I reviewed the patient's lab results. 08/20/22 00:30 08/20/22 00:30 Labs: Lab Results 08/19/22 08/20/22 08/20/22 Range/Units 23:18 00:30 00:30 WBC 8.4 (4.5-11.0) X10^3/uL RBC 4.14 L (4.5-5.9) X10^6/uL Hgb 13.3 L (13.5-17.5) g/dL Hct 38.7 L (41-53) % MCV 93.5 (80-100) fL MCH 32.2 (26-34) PG MCHC 34.4 (30-36) % RDW 12.6 (11.6-14.8) % Plt Count 185 (150-400) X10^3/uL Neut % (Auto) 77.6 H (50-75) % Lymph % (Auto) 13.6 L (25-40) % [place] % (Auto) 7.3 (3-14) % Eos % (Auto) 0.8 L (2-4) % Baso % (Auto) 0.7 (0-2) % Neut # (Auto) 6500 (9509-7940) /uL Lymph # (Auto) 1100 (6984-6384) /uL [place] # (Auto) 600 (0-900) /uL Eos # (Auto) 100 (0-450) /uL Baso # (Auto) 100 (0-100) /uL Sodium 137 (137-145) mmol/L Potassium 3.5 (3.4-5.1) mmol/L Chloride 103 (98-107) mmol/L Carbon Dioxide 28 (22-32) mmol/L BUN 20 (9-20) mg/dL Creatinine 1.07 (0.66-1.25) mg/dL Estimated GFR > 60 (>60) mL/min BUN/Creatinine Ratio 18.7 (6-22) Glucose 115 H (80-110) mg/dL Calcium 9.1 (8.4-10.2) mg/dL Total Bilirubin 0.7 (0.2-1.3) mg/dL AST 28 (17-59) IU/L ALT 25 (<50) IU/L Alkaline Phosphatase 84 (38-126) U/L Total Protein 6.7 (6.3-8.2) g/dL Albumin 4.0 (3.5-5.0) g/dL Globulin 2.7 (1.7-4.1) g/dL Albumin/Globulin Ratio 1.5 (1.0-2.8) Lipase 63 (23-300) U/L Urine RBC 30-100/hpf H (0-5/HPF) Urine WBC None seen (0-5/HPF) Urine Bacteria None seen (None) Ur Culture Indicated? Cult not indicated Urine Dip Bedside Urine Glucose Negative Bedside Urine Bilirubin - Negative Bedside Urine Ketone - Negative Urine Specific [place] 1.015 Bedside Urine Occult Blood +++ Bedside Urine pH 7.5 Bedside Urine Protein - Negative Bedside Urine Urobilinogen - Negative Bedside Urine Nitrite - Negative Bedside Urine Leukocytes - Negative Esterase Point of care testing: Urine Dip Bedside Urine Glucose Negative Bedside Urine Bilirubin - Negative Bedside Urine Ketone - Negative Urine Specific [place] 1.015 Bedside Urine Occult Blood +++ Bedside Urine pH 7.5 Bedside Urine Protein - Negative Bedside Urine Urobilinogen - Negative Bedside Urine Nitrite - Negative Bedside Urine Leukocytes - Negative Esterase Imaging Data CT scan - abdomen/pelvis: Radiologist's Impression: PROCEDURE:? CT KIDNEY URETER BLADDER (KUB) ? INDICATIONS:? Bladder pain with hematuria and dysuria ? TECHNIQUE:? Axial sections were acquired from the lung bases to the pubic symphysis.? Coronal and sagittal reformats were performed.? For radiation dose reduction, the following was used: ?automated exposure control, adjustment of mA and/or kV according to patient size.? ? COMPARISON:? [facility], CT, CT ABDOMEN PELVIS W CON, 12/04/2017, 14:22.? [facility], US, US HERNIA ABDOMINAL, 11/10/2021, 10:50. ? FINDINGS:? Image quality:? Excellent.? ? Lung bases:? Unremarkable. ? A small hiatal hernia is incidentally noted. ? Heart:? No significant findings. ? URINARY: Right Kidney:? There is moderate to prominent right-sided hydro nephrosis.? Relatively prominent perinephric fat stranding can be seen.? No nonobstructing stones are seen.? Right Ureter:? Moderate to prominent hydroureter can be seen with.? Within the distal right ureter, on series 2, image 73, and on series 4, image 45, there is an oblong stone that measures 6 mm craniocaudal and measures 500 Hounsfield units. ? Left Kidney: ? No stones or hydronephrosis. Left Ureter:? No hydroureter.? ? Bladder:? Normal wall thickness. No stones. ? ? ? ABDOMEN: Liver:? Unremarkable.? ? Gallbladder:? Unremarkable.? ? Biliary ducts:? Unremarkable.? ? Pancreas:? Unremarkable.? ? Spleen:? Unremarkable.? ? Incidental note is made of an accessory splenule along the anterior of the primary spleen. Adrenal Glands:? Unremarkable.? ? ? Stomach and Bowel:? Stomach, small bowel loops, and colon are unremarkable.? Colonic diverticulosis is seen, without findings of active diverticulitis. A normal appendix is incidentally noted.? Peritoneum:? No abnormal intraperitoneal fluid.? No free air.? ? Ventral Wall: ? A left lower quadrant fat containing spigelian hernia is again seen. A minimal periumbilical hernia is seen, containing fat. ? Abdominal Nodes:? No enlarged retroperitoneal or mesenteric lymph nodes.? Vessels:? Aorta and inferior vena cava are normal in size.? ? PELVIS: Pelvic Organs:? Unremarkable.? ? Pelvic Nodes: Unremarkable. Miscellaneous:? Small bilateral fat containing inguinal hernias are seen. ? Bones:? Focal L5-S1 degenerative change is seen.? Milder degenerative changes are seen elsewhere.? ? IMPRESSION:? ? 6 mm obstructing stone within the distal right ureter, with associated right-sided moderate to prominent hydronephrosis, hydroureter, and perinephric fat stranding. ? No nonobstructing stones are seen. ? ? ? Additional findings:? Small hiatal hernia Accessory splenule Minimal fat containing periumbilical hernia Left lower quadrant fat containing spigelian hernia Diverticulosis, without active diverticulitis Normal appendix L5-S1 degenerative change Mild bilateral fat containing inguinal hernias MDM Narrative Medical decision making narrative: Kidney functions unremarkable. Urinalysis shows blood but no other signs of infection. CT scan does show distal right 6 mm ureteral stone. Patient's symptoms are somewhat better after Toradol. No fevers. Tolerating oral intake. Was sent home with pain/nausea medicine and also prescription for Flomax. I did discuss the findings of the CT scan with the patient and his . We discussed strict return precautions. They expressed understanding and agreement. Discharge Plan Departure Patient Disposition: Home Clinical Impression: Calculus of distal right ureter Instructions: DI for Kidney Stones Activity Restrictions/Additional Instructions: Prescription for pain medication and nausea medicine plus Flomax was sent to the pharmacy of your choice. Please start taking them as directed and as needed. I would suspect that over the next day or so you will pass this stone that is on the right side. Please return to the emergency department for fevers, vomiting despite the medications. Pain despite your pain medicine or the inability to urinate like we discussed. Prescriptions: New tamsulosin [Flomax] 0.4 mg capsule 0.4 mg PO DAILY Qty: 14 0RF ondansetron 4 mg tablet,disintegrating 4 mg PO Q6H PRN (Reason: nausea and vomiting) Qty: 10 0RF hydrocodone-acetaminophen 5-325 mg tablet 1 tab PO Q4-6H PRN (Reason: pain) Qty: 10 0RF No Action ascorbic acid (vitamin C) 1,000 mg Tablet 1,000 mg PO DAILY Qty: 0 Referrals: Miscellaneous,Doctor, MD [Primary Care Provider] - Stand Alone Forms: Patient Portal/API
--- NOTE | 2022-08-20 00:49 | DI.CT.S_ITS ---
PROCEDURE: CT KIDNEY URETER BLADDER (KUB) INDICATIONS: Bladder pain with hematuria and dysuria TECHNIQUE: Axial sections were acquired from the lung bases to the pubic symphysis. Coronal and sagittal reformats were performed. For radiation dose reduction, the following was used: automated exposure control, adjustment of mA and/or kV according to patient size. COMPARISON: [facility], CT, CT ABDOMEN PELVIS W CON, 12/04/2017, 14:22. [facility], US, US HERNIA ABDOMINAL, 11/10/2021, 10:50. FINDINGS: Image quality: Excellent. Lung bases: Unremarkable. A small hiatal hernia is incidentally noted. Heart: No significant findings. URINARY: Right Kidney: There is moderate to prominent right-sided hydro nephrosis. Relatively prominent perinephric fat stranding can be seen. No nonobstructing stones are seen. Right Ureter: Moderate to prominent hydroureter can be seen with. Within the distal right ureter, on series 2, image 73, and on series 4, image 45, there is an oblong stone that measures 6 mm craniocaudal and measures 500 Hounsfield units. Left Kidney: No stones or hydronephrosis. Left Ureter: No hydroureter. Bladder: Normal wall thickness. No stones. ABDOMEN: Liver: Unremarkable. Gallbladder: Unremarkable. Biliary ducts: Unremarkable. Pancreas: Unremarkable. Spleen: Unremarkable. Incidental note is made of an accessory splenule along the anterior of the primary spleen. Adrenal Glands: Unremarkable. Stomach and Bowel: Stomach, small bowel loops, and colon are unremarkable. Colonic diverticulosis is seen, without findings of active diverticulitis. A normal appendix is incidentally noted. Peritoneum: No abnormal intraperitoneal fluid. No free air. Ventral Wall: A left lower quadrant fat containing spigelian hernia is again seen. A minimal periumbilical hernia is seen, containing fat. Abdominal Nodes: No enlarged retroperitoneal or mesenteric lymph nodes. Vessels: Aorta and inferior vena cava are normal in size. PELVIS: Pelvic Organs: Unremarkable. Pelvic Nodes: Unremarkable. Miscellaneous: Small bilateral fat containing inguinal hernias are seen. Bones: Focal L5-S1 degenerative change is seen. Milder degenerative changes are seen elsewhere. IMPRESSION: 6 mm obstructing stone within the distal right ureter, with associated right-sided moderate to prominent hydronephrosis, hydroureter, and perinephric fat stranding. No nonobstructing stones are seen. Additional findings: Small hiatal hernia Accessory splenule Minimal fat containing periumbilical hernia Left lower quadrant fat containing spigelian hernia Diverticulosis, without active diverticulitis Normal appendix L5-S1 degenerative change Mild bilateral fat containing inguinal hernias Dictated by: Louis Perez M.D. on 08/20/2022 at 0:20 Approved by: Louis Perez M.D. on 08/20/2022 at 0:25
[2022-08-20 00:55] LABS: Alanine Aminotransferase 25 IU/L (<50); Albumin Globulin Ratio 1.5 (1.0-2.8); Alkaline Phosphatase 84 U/L (38-126); Aspartate Aminotransferase 28 IU/L (17-59); BUN Creatinine Ratio 18.7 (6-22); Bilirubin Total 0.7 mg/dL (0.2-1.3); Blood Urea Nitrogen 20 mg/dL (9-20); Calcium 9.1 mg/dL (8.4-10.2); Carbon Dioxide 28 mmol/L (22-32); Chloride 103 mmol/L (98-107); Estimated Glomerular Filt Rate > 60 mL/min (>60); Globulin 2.7 g/dL (1.7-4.1); Glucose 115 mg/dL (80-110); HEMOLYSIS < 15 (0-50); Lipase 63 U/L (23-300); Potassium 3.5 mmol/L (3.4-5.1); Sodium 137 mmol/L (137-145); Total Protein 6.7 g/dL (6.3-8.2)
[2022-08-20] MEDS: KETOROLAC 30 MG/ML VIAL IV (01:31)
[2022-08-20 01:56] VITALS: O2SAT 97
[2022-08-20 01:57] VITALS: BP 166/74; PULSE 63; O2SAT 97
[2022-08-20] MEDS: ONDANSETRON 4 MG ODT PREPACK 1 BOTTLE MISC (02:12)
[2022-08-20] MEDS: HYDROCODONE/ACET 5/325 PREPACK 1 BOTTLE MISC (02:12)
[2022-08-20] MEDS: TAMSULOSIN 0.4 MG CAPSULE PO (02:12)
== END 2022-08-20 02:29 | disposition home or self-care (01) ==
PROVIDERS: Emergency Provider Emergency Medicine
DX: N20.1 Calculus of ureter (principal)
CPT/HCPCS: 74176; 80053; 81003; 81015; 83690; 85025; 96374; 99284; J1885

== ENCOUNTER 2023-12-15 09:49 | Emergency (ER) | payer OTHER, SELFPAY ==
[2020-12-07 11:07] VITALS: BMI 26.9
[2023-12-15] VITALS (24 sets, daily range): BP systolic 112–211; BP diastolic 51–103; PULSE 55–82; RESP 12–31; TEMP 36.6; O2SAT 91–100; BMI 28.5
--- NOTE | 2023-12-15 09:57 | EKG_ITS ---
[facility] [address] [place] [id number] Test Date: 2023-12-15 Pat Name: Colt Richardson Department: [facility] Room: Gender: Male Health Professor: SANDRA : [id number] Requested By: Order Number: [id number] Reading MD: Zachary Jewell MD Measurements Intervals [place] Rate: 60 P: 4 OK: 156 QRS: -24 QRSD: 90 T: 24 QT: 428 QTc: 428 Interpretive Statements Normal sinus rhythm Electronically Signed On 12-15-2023 12:05:54 PDT by Zachary Jewell MD
--- NOTE | 2023-12-15 10:05 | ED_ITS ---
HPI - Abdominal Pain General Chief Complaint: Abdominal Pain Stated Complaint: Left flank pain,hx kidney stones and hernia L side Time Seen by Provider: 12/15/23 09:53 Source: patient Mode of arrival: EMS History of Present Illness HPI narrative: 68-year-old male with left low back and left lower quadrant abdominal pain acute onset 1 hour ago, history of kidney stone 30 years ago, none since, no injury or trauma, has also a ventral hernia on the left side. No nausea or vomiting. Last bowel movement yesterday, no black or red stools, no hard stools. Arrived by EMS, was given IV pain medication EN route, pain is gone now. No chest pain, shortness of breath, cough, fevers or chills. No dysuria with urine, no gross bloody or dark urine. No injury or trauma or new activities recalled. Related Data Home Medications Medication Instructions Recorded Confirmed ascorbic acid (vitamin C) 1,000 mg 1,000 mg PO DAILY ##0 05/23/16 08/18/21 tablet Previous Rx's Medication Instructions Recorded hydrocodone 5 mg-acetaminophen 325 1 tab PO Q4-6H PRN pain #10 tabs 08/20/22 mg tablet ondansetron 4 mg disintegrating 4 mg PO Q6H PRN nausea and 08/20/22 tablet vomiting #10 tabs tamsulosin 0.4 mg capsule (Flomax) 0.4 mg PO DAILY #14 caps 08/20/22 hydrocodone 5 mg-acetaminophen 325 1 tab PO Q6H PRN pain #20 tabs 12/15/23 mg tablet tamsulosin 0.4 mg capsule 0.4 mg PO DAILY ureteral stone #14 12/15/23 caps Allergies Allergy/AdvReac Type Severity Reaction Status Date / Time Iodinated Contrast Media Allergy Verified 12/15/23 09:52 ketorolac [From Toradol] Allergy Verified 12/15/23 09:52 promethazine [PROMETHAZINE] AdvReac Severe Agitated Verified 12/15/23 09:52 Fidgety Review of Systems Review of Systems Narrative: see HPI Patient History Medical History BPH (benign prostatic hyperplasia) BRBPR (bright red blood per rectum) Cervical spondylosis (~2016) Colon polyp, hyperplastic Finger injury Hyperlipemia Internal hemorrhoids Surgical History History of hemorrhoidectomy History of vasectomy (1987) Family History Brother Prostate cancer Father CAD (coronary artery disease) Mother Age: 95 Hypertension Grandfather No problems noted. Grandmother No problems noted. Social History Smoking Status: Never smoker Smoking Status: Never smoker alcohol intake frequency: holidays/special occasions only Substance Use Type: does not use Exam Narrative Exam Narrative: GENERAL: Well-developed patient, in mild distress. HEAD: Atraumatic. Normocephalic. EYES: Pupils equal round and reactive. Extraocular motions intact. No scleral icterus. No injection or drainage. ENT: Nose without bleeding, purulent drainage. Throat without erythema, tonsillar hypertrophy or exudate. Airway patent. NECK: Trachea midline. Non tender CARDIOVASCULAR: Regular rate and rhythm without murmurs, gallops, or rubs. RESPIRATORY: Clear to auscultation. Breath sounds equal bilaterally. No wheezes, rales, or rhonchi. GASTROINTESTINAL: Abdomen soft, non-tender, nondistended. EXTREMITIES: No edema or joint tenderness. Mild tenderness left lower quadrant, I could not appreciate any reported ventral hernia in that area, no guarding or rebound tenderness, no asymmetry to the abdominal wall, no obvious inguinal hernia, no obvious valentine umbilical hernia BACK: Nontender without deformity or crepitance. No flank tenderness. NEURO: AOx3. Nonfocal neuro exam SKIN: No rash or erythema of visible areas Initial Vital Signs Initial Vital Signs: Vital Signs Temperature 97.8 F 12/15/23 09:50 Pulse Rate 65 12/15/23 09:50 Respiratory Rate 22 12/15/23 09:50 Blood Pressure 196/93 H 12/15/23 09:50 Pulse Oximetry 99 12/15/23 09:50 Oxygen Delivery Method Room Air 12/15/23 09:50 Course Orders Ordered: Discontinued Medications Hydromorphone HCl (Hydromorphone 0.5 Mg Inj) 0.5 mg IV NOW ONE Stop: 12/15/23 12:17 Last Admin: 12/15/23 12:19 Dose: 0.5 mg Documented By: RB Lidocaine HCl (Lidocaine 2% (Glydo) 6 Ml Gel) 6 ml TOP NOW ONE Stop: 12/15/23 11:55 Last Admin: 12/15/23 12:11 Dose: 6 ml Documented By: RB Morphine Sulfate (Morphine 2 Mg/Ml Inj) 2 mg IV NOW ONE Stop: 12/15/23 11:15 Last Admin: 12/15/23 11:28 Dose: 2 mg Documented By: RB Ondansetron HCl (Ondansetron 4 Mg/2 Ml Inj) 4 mg IV NOW PRN PRN Reason: Nausea And Vomiting Ondansetron HCl (Ondansetron 4 Mg Odt) 4 mg PO NOW PRN PRN Reason: Nausea And Vomiting Vital Signs Vital signs: Vital Signs - 8 hr 12/15/23 09:50 12/15/23 09:53 12/15/23 09:55 Temperature 97.8 F Pulse Rate 65 64 Respiratory Rate 22 Blood Pressure 196/93 H 196/93 H Pulse Oximetry 99 100 Oxygen Delivery Method Room Air Oxygen Flow Rate 12/15/23 09:55 12/15/23 10:00 12/15/23 10:00 Temperature Pulse Rate 65 62 Respiratory Rate 26 H Blood Pressure 192/103 H Pulse Oximetry 100 100 Oxygen Delivery Method Oxygen Flow Rate 12/15/23 10:15 12/15/23 10:15 12/15/23 10:30 Temperature Pulse Rate 59 L 56 L Respiratory Rate 20 24 Blood Pressure 211/88 H Pulse Oximetry 99 98 Oxygen Delivery Method Oxygen Flow Rate 12/15/23 10:31 12/15/23 10:31 12/15/23 10:45 Temperature Pulse Rate 58 L 56 L Respiratory Rate 14 13 Blood Pressure 195/81 H Pulse Oximetry 98 96 Oxygen Delivery Method Oxygen Flow Rate 12/15/23 10:45 12/15/23 11:00 12/15/23 11:00 Temperature Pulse Rate 62 Respiratory Rate 21 Blood Pressure 165/59 H 158/68 H Pulse Oximetry 94 Oxygen Delivery Method Oxygen Flow Rate 12/15/23 11:19 12/15/23 11:19 12/15/23 11:30 Temperature Pulse Rate 58 L 55 L Respiratory Rate 17 13 Blood Pressure 171/77 H Pulse Oximetry 96 94 Oxygen Delivery Method Oxygen Flow Rate 12/15/23 11:31 12/15/23 11:31 12/15/23 11:45 Temperature Pulse Rate 56 L 64 Respiratory Rate 15 28 H Blood Pressure 112/51 L Pulse Oximetry 95 98 Oxygen Delivery Method Oxygen Flow Rate 12/15/23 11:45 12/15/23 12:00 12/15/23 12:01 Temperature Pulse Rate 62 Respiratory Rate 31 H Blood Pressure 162/68 H 201/79 H Pulse Oximetry 100 Oxygen Delivery Method Oxygen Flow Rate 12/15/23 12:01 12/15/23 12:16 12/15/23 12:16 Temperature Pulse Rate 67 61 Respiratory Rate 29 H 26 H Blood Pressure 189/79 H Pulse Oximetry 100 100 Oxygen Delivery Method Oxygen Flow Rate 12/15/23 12:30 12/15/23 12:30 12/15/23 12:45 Temperature Pulse Rate 61 60 Respiratory Rate 12 13 Blood Pressure 167/72 H Pulse Oximetry 94 91 Oxygen Delivery Method Oxygen Flow Rate 12/15/23 12:45 12/15/23 13:00 12/15/23 13:01 Temperature Pulse Rate 58 L 60 Respiratory Rate 18 13 Blood Pressure 158/71 H Pulse Oximetry 98 98 Oxygen Delivery Method Nasal Cannula Nasal Cannula Oxygen Flow Rate 1 1 12/15/23 13:01 12/15/23 13:15 12/15/23 13:15 Temperature Pulse Rate 64 Respiratory Rate 17 Blood Pressure 167/76 H 159/74 H Pulse Oximetry 98 Oxygen Delivery Method Oxygen Flow Rate 12/15/23 13:30 12/15/23 13:30 12/15/23 13:45 Temperature Pulse Rate 78 75 Respiratory Rate 17 22 Blood Pressure 142/59 H Pulse Oximetry 96 98 Oxygen Delivery Method Oxygen Flow Rate 12/15/23 13:45 Temperature Pulse Rate Respiratory Rate Blood Pressure 152/70 H Pulse Oximetry Oxygen Delivery Method Oxygen Flow Rate MDM - Abdominal Pain Lab Data Attestation: I reviewed the patient's lab results. 12/15/23 10:07 12/15/23 10:07 Labs: Lab Results 12/15/23 12/15/23 Range/Units 10:07 10:40 WBC 4.5 (4.5-11.0) X10^3/uL RBC 4.37 L (4.5-5.9) X10^6/uL Hgb 14.2 (13.5-17.5) g/dL Hct 41.5 (41-53) % MCV 95.1 (80-100) fL MCH 32.6 (26-34) PG MCHC 34.3 (30-36) % RDW 12.9 (11.6-14.8) % Plt Count 191 (150-400) X10^3/uL Neut % (Auto) 62.1 (50-75) % Lymph % (Auto) 28.2 (25-40) % [place] % (Auto) 6.5 (3-14) % Eos % (Auto) 2.3 (2-4) % Baso % (Auto) 0.9 (0-2) % Neut # (Auto) 2800 (2230-9824) /uL Lymph # (Auto) 1300 (4205-5727) /uL [place] # (Auto) 300 (0-900) /uL Eos # (Auto) 100 (0-450) /uL Baso # (Auto) 0 (0-100) /uL Sodium 138 (137-145) mmol/L Potassium 4.4 (3.4-5.1) mmol/L Chloride 110 H (98-107) mmol/L Carbon Dioxide 20 L (22-32) mmol/L BUN 19 (9-20) mg/dL Creatinine 1.28 H (0.66-1.25) mg/dL Estimated GFR > 60 (>60) mL/min BUN/Creatinine Ratio 14.8 (6-22) Glucose 144 H (80-110) mg/dL Calcium 9.6 (8.4-10.2) mg/dL Total Bilirubin 0.9 (0.2-1.3) mg/dL AST 49 (17-59) IU/L ALT 45 (<50) IU/L Alkaline Phosphatase 79 (38-126) U/L Total Protein 7.2 (6.3-8.2) g/dL Albumin 4.4 (3.5-5.0) g/dL Globulin 2.8 (1.7-4.1) g/dL Albumin/Globulin Ratio 1.6 (1.0-2.8) Lipase 76 (23-300) U/L Urine Color Yellow Urine Appearance Clear Urine pH >= 9.0 H (4.5-8.0) Ur Specific [place] 1.015 (1.000-1.035) Urine Protein Trace H (Negative) Urine Glucose (UA) Negative (Negative) g/dL Urine Ketones Negative (NEGATIVE) Urine Occult Blood 2+ H (Negative) Urine Nitrate Negative (Negative) Urine Bilirubin Negative (NEGATIVE) Urine Urobilinogen 0.2 (0.2) E.U./dL Ur Leukocyte Esterase Negative (NEGATIVE) Urine RBC 10-30/hpf H (0-5/HPF) Urine WBC 0-1/hpf (0-5/HPF) Ur Squamous Epith Cells None seen (0-5/HPF) Urine Bacteria None seen (None) Ur Culture Indicated? Cult not indicated Vol Urine Centrifuged 10ml (spun) Imaging Data Chest x-ray: Radiologist's Impression: [address] [id number] XRay Report Signed Patient: Colt Richardson MR#: [id number] : 1955 Acct:[id number] Age/Sex: 68 / M Date of Service: 12/15/23 Loc: ED Accession Number: [id number] Procedure: XR chest 1V Ordering Provider: Sean Bhatt MD PROCEDURE: XR CHEST 1V INDICATIONS: pt request, left sided abd pain TECHNIQUE: One view of the chest was acquired. COMPARISON: None. FINDINGS: Surgical changes and devices: None. Lungs and pleura: Lungs are clear. No pleural effusions or pneumothorax. Mediastinum: Mediastinal contours appear normal. Heart size is normal. Bones and chest wall: No suspicious bony lesions. Overlying soft tissues appear unremarkable. IMPRESSION: No acute cardiopulmonary abnormality is seen. Approved by: Wilian Doll M.D. on 12/15/2023 at 11:24 CT scan - abdomen/pelvis: Radiologist's Impression: [address] [id number] [address] Scan Report Signed Patient: Colt Richardson MR#: [id number] : 1955 Acct:[id number] Age/Sex: 68 / M Date of Service: 12/15/23 Loc: ED Accession Number: [id number] Procedure: CT kidney ureter bladder (KUB) Ordering Provider: Sean Bhatt MD PROCEDURE: CT KIDNEY URETER BLADDER (KUB) INDICATIONS: LLQ pain, hx IV contrast hives, hx remote stones, R hernia TECHNIQUE: Axial sections were acquired from the lung bases to the pubic symphysis. Coronal and sagittal reformats were performed. For radiation dose reduction, the following was used: automated exposure control, adjustment of mA and/or kV according to patient size. COMPARISON: None. FINDINGS: Lower thorax: The lung bases are clear. Heart size normal. No hiatal hernia. Liver: Normal in size and attenuation. No contour deformity present. Biliary system: No calcified cholelithiasis or pericholecystic inflammation. No intra or extrahepatic bile duct dilatation. Pancreas: Unremarkable without mass or inflammation evident. Spleen: Normal in size and density. Adrenals: Normal morphology and density. Reproductive system: Unremarkable as visualized. Urinary system: Moderate left hydronephrosis and hydroureter associated with 3 mm calculus at the left ureterovesical junction. No right-sided calculi or hydronephrosis. Gastrointestinal system: The bowel is unremarkable without evidence of bowel obstruction or inflammation. The stomach appears unremarkable. Multiple diverticula arise from the sigmoid colon without evidence of diverticulitis. Appendix: No findings to suggest acute appendicitis. Peritoneal spaces: No mesenteric or retroperitoneal adenopathy. No free air. No free fluid. Vasculature: The IVC, aorta and iliac vasculature are unremarkable. Abdominal wall: Left spigelian ventral hernia contains fat without bowel involvement Musculoskeletal: Normal bone mineralization. Degenerative disc disease and arthropathy noted in lower lumbar spine. No acute fractures. IMPRESSION: Left-sided moderate hydronephrosis/hydroureter associated with 3 mm calculus at the left UVJ. Approved by: Wilian Doll M.D. on 12/15/2023 at 12:17 ECG Data Attestation: I personally reviewed and interpreted this ECG as follows: Interpretation: Normal sinus rhythm with rate of 60, no obvious ST segment elevation or depression changes. T-wave inversion slight lead 3, upright in leads 2 and F contiguous inferior leads. KS 156, QRS 90, QTC 428. MDM Narrative Medical decision making narrative: 68-year-old male with history of remote kidney stone 30 years ago, also left- sided ventral hernia not repaired, has 1 hour duration left lower quadrant abdominal pain, better after IV analgesic EN route by EMS, some tenderness left lower quadrant, no guarding or rebound. DDx consider left ureteral stone, left ventral hernia without/with strangulation, bowel obstruction, colitis, diverticulitis, UTI, other. History of allergy to IV contrast includes hives and trouble breathing. CT abdomen and pelvis noncontrast ordered. Family/patient requests chest x-ray, additional view chest x-ray ordered also, though seems noncontributory. Labs pending including urine dip. Pain returning, history of angioedema with Toradol/NSAIDs, we will give IV morphine for now. CT abdomen and pelvis imaging still to be performed Urinalysis shows blood, not obviously infected. Afebrile. CT abdomen and pelvis shows presence of left 3 mm UPJ level stone with moderate hydronephrosis, see radiology report. Copy report given to patient. Urine strainer. Pain medications as needed. Follow up with local urologists, contact information provided. Discharged home with family Critical Care Time Critical Care Time Critical Care Time: Yes Total Critical Care Time: 31 Attestation: The high probability of a clinically significant, sudden or life threatening deterioration of the [genitourinary, abdominopelvic, gastrointestinal] system(s) required my full and direct attention, intervention and personal management. The aggregate critical care time was [31] minutes. This time is in addition to time spent performing reported procedures but includes the following: [x] Data Review and interpretation [x] Patient assessment and monitoring of vital signs [x] Documentation [x] Medication orders and management Discharge Plan Departure Patient Disposition: Home Clinical Impression: Left ureteral stone Activity Restrictions/Additional Instructions: Left-sided abdominal pain, remote history of kidney stone 30 years ago, also left-sided anterior hernia, mild tenderness on exam. Some delay in obtaining the CT reports due technical transmission report issues, though the report does describe 3 mm stone in the distal left ureter. This is fairly small and fairly far down, hopefully will pass. If not already passed, you could have continued discomfort as it continues to move into the bladder area. Consider straining your urine, any urine stone/sediment could be sent for testing, to see what stone type is present, to see if any medications could help future stone prevention. Follow up with local urologists. Tylenol as needed for discomfort. Stronger pain medication sent to your pharmacy to use if needed. Follow up with Urology, call their office early next week. Consider taking tamsulosin daily if you are not still taking previous prescription noted, as this could help with stone expulsion, though seems to be more helpful for bigger stones that are higher up, could be useful. Stopped the tamsulosin if you feel dizzy on this medication. Return to this/nearest emergency department for any change worsening symptoms or any concerns prior Prescriptions: New tamsulosin 0.4 mg capsule 0.4 mg PO DAILY Qty: 14 0RF hydrocodone-acetaminophen 5-325 mg tablet 1 tab PO Q6H PRN (Reason: pain) Qty: 20 0RF No Action ascorbic acid (vitamin C) 1,000 mg Tablet 1,000 mg PO DAILY Qty: 0 tamsulosin [Flomax] 0.4 mg capsule 0.4 mg PO DAILY Qty: 14 0RF ondansetron 4 mg tablet,disintegrating 4 mg PO Q6H PRN (Reason: nausea and vomiting) Qty: 10 0RF hydrocodone-acetaminophen 5-325 mg tablet 1 tab PO Q4-6H PRN (Reason: pain) Qty: 10 0RF Referrals: Anshu Puentes DO [Physician] - Miscellaneous,Doctor, MD [Primary Care Provider] - Stand Alone Forms: Patient Portal/API
[2023-12-15 10:15] LABS: Add Manual Diff / Slide Review NO; Basophils Absolute Auto 0 /uL (0-100); Basophils Percent Auto 0.9 % (0-2); Eosinophils Absolute Auto 100 /uL (0-450); Eosinophils Percent Auto 2.3 % (2-4); Hematocrit 41.5 % (41-53); Hemoglobin 14.2 g/dL (13.5-17.5); Lymphocytes Absolute Auto 1300 /uL (1100-4500); Lymphocytes Percent Auto 28.2 % (25-40); Mean Corpuscular HGB Conc 34.3 % (30-36); Mean Corpuscular Hemoglobin 32.6 PG (26-34); Mean Corpuscular Volume 95.1 fL (80-100); Monocytes Absolute Auto 300 /uL (0-900); Monocytes Percent Auto 6.5 % (3-14); Neutrophils Absolute Auto 2800 /uL (1500-7000); Neutrophils Percent Auto 62.1 % (50-75); Platelet Count 191 X10^3/uL (150-400); Red Blood Cell Count 4.37 X10^6/uL (4.5-5.9); Red Cell Distribution Width 12.9 % (11.6-14.8); White Blood Cell Count 4.5 X10^3/uL (4.5-11.0)
--- NOTE | 2023-12-15 10:22 | DI.CT.S_ITS ---
PROCEDURE: CT KIDNEY URETER BLADDER (KUB) INDICATIONS: LLQ pain, hx IV contrast hives, hx remote stones, R hernia TECHNIQUE: Axial sections were acquired from the lung bases to the pubic symphysis. Coronal and sagittal reformats were performed. For radiation dose reduction, the following was used: automated exposure control, adjustment of mA and/or kV according to patient size. COMPARISON: None. FINDINGS: Lower thorax: The lung bases are clear. Heart size normal. No hiatal hernia. Liver: Normal in size and attenuation. No contour deformity present. Biliary system: No calcified cholelithiasis or pericholecystic inflammation. No intra or extrahepatic bile duct dilatation. Pancreas: Unremarkable without mass or inflammation evident. Spleen: Normal in size and density. Adrenals: Normal morphology and density. Reproductive system: Unremarkable as visualized. Urinary system: Moderate left hydronephrosis and hydroureter associated with 3 mm calculus at the left ureterovesical junction. No right-sided calculi or hydronephrosis. Gastrointestinal system: The bowel is unremarkable without evidence of bowel obstruction or inflammation. The stomach appears unremarkable. Multiple diverticula arise from the sigmoid colon without evidence of diverticulitis. Appendix: No findings to suggest acute appendicitis. Peritoneal spaces: No mesenteric or retroperitoneal adenopathy. No free air. No free fluid. Vasculature: The IVC, aorta and iliac vasculature are unremarkable. Abdominal wall: Left spigelian ventral hernia contains fat without bowel involvement Musculoskeletal: Normal bone mineralization. Degenerative disc disease and arthropathy noted in lower lumbar spine. No acute fractures. IMPRESSION: Left-sided moderate hydronephrosis/hydroureter associated with 3 mm calculus at the left UVJ. Approved by: Wilian Doll M.D. on 12/15/2023 at 12:17
--- NOTE | 2023-12-15 10:23 | DI.RAD.S_ITS ---
PROCEDURE: XR CHEST 1V INDICATIONS: pt request, left sided abd pain TECHNIQUE: One view of the chest was acquired. COMPARISON: None. FINDINGS: Surgical changes and devices: None. Lungs and pleura: Lungs are clear. No pleural effusions or pneumothorax. Mediastinum: Mediastinal contours appear normal. Heart size is normal. Bones and chest wall: No suspicious bony lesions. Overlying soft tissues appear unremarkable. IMPRESSION: No acute cardiopulmonary abnormality is seen. Approved by: Wilian Doll M.D. on 12/15/2023 at 11:24
[2023-12-15 10:25] LABS: Alanine Aminotransferase 45 IU/L (<50); Albumin 4.4 g/dL (3.5-5.0); Albumin Globulin Ratio 1.6 (1.0-2.8); Alkaline Phosphatase 79 U/L (38-126); Aspartate Aminotransferase 49 IU/L (17-59); BUN Creatinine Ratio 14.8 (6-22); Bilirubin Total 0.9 mg/dL (0.2-1.3); Blood Urea Nitrogen 19 mg/dL (9-20); Calcium 9.6 mg/dL (8.4-10.2); Carbon Dioxide 20 mmol/L (22-32); Chloride 110 mmol/L (98-107); Estimated Glomerular Filt Rate > 60 mL/min (>60); Globulin 2.8 g/dL (1.7-4.1); Glucose 144 mg/dL (80-110); HEMOLYSIS 15 (0-50); Lipase 76 U/L (23-300); Potassium 4.4 mmol/L (3.4-5.1); Sodium 138 mmol/L (137-145); Total Protein 7.2 g/dL (6.3-8.2)
[2023-12-15 10:55] LABS: Appearance Urine UA CLEAR; Bilirubin Urine UA NEGATIVE (NEGATIVE); Color Urine UA YELLOW; Glucose Urine UA NEGATIVE (Negative); Ketones Urine UA NEGATIVE (NEGATIVE); Leukocyte Esterase Urine UA NEGATIVE (NEGATIVE); Nitrite Urine UA NEGATIVE (Negative); Occult Blood Urine UA 2+ (Negative); Protein Urine UA TRACE (Negative); Specific Gravity Urine UA 1.015 (1.000-1.035); Urobilinogen Urine UA 0.2 E.U./dL (0.2); pH Urine UA >= 9.0 (4.5-8.0)
[2023-12-15 11:02] LABS: Urine Volume 10mL (spun)
[2023-12-15 11:03] LABS: RBC Urine 10-30/HPF (0-5/HPF); Squamous Epithelial Cell Urine None Seen (0-5/HPF); WBC Urine 0-1/HPF (0-5/HPF)
[2023-12-15 11:04] LABS: Bacteria Urine None Seen
[2023-12-15 11:05] LABS: Culture Indicated Urine Cult Not Indicated
[2023-12-15] MEDS: MORPHINE 2 MG/ML INJ IV (11:28)
[2023-12-15] MEDS: LIDOCAINE 2% (GLYDO) 6 ML GEL TOP (12:11)
[2023-12-15] MEDS: HYDROMORPHONE 0.5 MG INJ IV (12:19)
== END 2023-12-15 14:34 | disposition home or self-care (01) ==
PROVIDERS: Emergency Provider Emergency Medicine
DX: N20.1 Calculus of ureter (principal); R10.32 Left lower quadrant pain
CPT/HCPCS: 71045; 74176; 80053; 81001; 83690; 85025; 93005; 93010; 96374; 96375; 99284; 99285; J1170; J2270

== ENCOUNTER 2024-10-13 07:37 | Emergency (ER) | payer OTHER, SELFPAY ==
[2020-12-07 11:07] VITALS: BMI 26.9
[2024-10-13] VITALS (9 sets, daily range): BP systolic 142–199; BP diastolic 65–93; PULSE 61–68; RESP 17; TEMP 36.6; O2SAT 91–100; BMI 26.4
[2024-10-13 07:56] LABS: Appearance Urine UA CLEAR; Bilirubin Urine UA NEGATIVE (NEGATIVE); Color Urine UA YELLOW; Glucose Urine UA NEGATIVE (Negative); Ketones Urine UA NEGATIVE (NEGATIVE); Leukocyte Esterase Urine UA NEGATIVE (NEGATIVE); Nitrite Urine UA NEGATIVE (Negative); Occult Blood Urine UA 1+ (Negative); Protein Urine UA NEGATIVE (Negative); Specific Gravity Urine UA 1.025 (1.000-1.035); Urobilinogen Urine UA 0.2 E.U./dL (0.2)
[2024-10-13 08:03] LABS: Bacteria Urine None Seen; RBC Urine 1-5/HPF (0-5/HPF); Urine Volume 10mL (spun); WBC Urine None Seen (0-5/HPF)
[2024-10-13 08:04] LABS: Culture Indicated Urine Cult Not Indicated; Squamous Epithelial Cell Urine 0-1 /HPF (0-5/HPF)
--- NOTE | 2024-10-13 08:04 | ED.ABDPAIN ---
HPI - Abdominal Pain General Chief Complaint: Abdominal Pain Stated Complaint: Possible Kidney stone this morning Time Seen by Provider: 10/13/24 07:46 Source: patient Mode of arrival: Ambulatory History of Present Illness HPI narrative: 68-year-old male history of kidney stones, colon polyps, abdominal wall hernia, diverticulosis, external hemorrhoids, hyperlipidemia, hyperlipidemia, here with acute flank pain that started around 5:00 a.m. this morning. It is on the left side. He is not able to describe the quality of the pain but says it is a ?exact duplicate? of the type of discomfort he felt with prior ureteral colic. Has not noted any blood in the urine or urinary urgency/frequency/dysuria or fever. Denies any abdominal pain or chest pain, difficulty in breathing. Denies any tearing or ripping sensation in the chest or abdomen, neurologic symptoms such as disturbance and speech or vision, weakness on 1 side of the body. On review of systems patient thinks he may have some light pink tinged blood on the toilet paper with wiping recently but no edna blood or bloody stools. Had a colonoscopy in 2020 he thinks that was showing some polyps that were biopsied. Related Data Previous Rx's ?Medication ?Instructions ?Recorded hydrocodone 5 mg-acetaminophen 325 1 tab PO Q6H PRN pain #20 tabs 08/17/24 mg tablet ondansetron 4 mg disintegrating 4 mg PO Q8H PRN nausea and 10/13/24 tablet vomiting 4 days #10 tabs tamsulosin 0.4 mg capsule 0.4 mg PO DAILY #20 caps 10/13/24 Allergies Allergy/AdvReac Type Severity Reaction Status Date / Time Iodinated Contrast Media Allergy Verified 10/13/24 07:48 ketorolac (From Toradol) Allergy Verified 10/13/24 07:48 promethazine (PROMETHAZINE) AdvReac Severe Agitated Verified 10/13/24 07:48 Fidgety Review of Systems Review of Systems Narrative: Pertinent ROS obtained and negative except as stated in HPI Patient History Medical History Finger injury Internal hemorrhoids Cervical spondylosis (~2016) BPH (benign prostatic hyperplasia) Hyperlipemia BRBPR (bright red blood per rectum) Colon polyp, hyperplastic Surgical History History of hemorrhoidectomy History of vasectomy (1987) Family History Brother Prostate cancer Father CAD (coronary artery disease) Mother Age: 96 Hypertension Grandfather No problems noted. Grandmother No problems noted. Social History Smoking Status: Smoker, status unknown Smoking Status: Smoker, status unknown alcohol intake frequency: holidays/special occasions only Exam Initial Vital Signs Initial Vital Signs: Vital Signs Temperature 97.9 F 10/13/24 07:48 Pulse Rate 65 10/13/24 07:48 Respiratory Rate 17 10/13/24 07:48 Blood Pressure 199/93 H 10/13/24 07:48 Pulse Oximetry 100 10/13/24 07:48 Oxygen Delivery Method Room Air 10/13/24 07:48 Constitutional: Well appearing, no acute distress Head: NCAT Cardiovascular: RRR, no murmur or rub Pulmonary: CTA bilaterally, no respiratory distress Abdominal: soft, non-tender. No pulsatile mass. There is a small left lower abdominal wall hernia noted that is nontender and soft. No CVA tenderness. No reproducible flank pain with palpation over the paralumbar and thoracic muscles Extremities: No LE edema Skin: warm and dry, no diaphoresis Neurological: Alert and oriented x3 Course Orders Ordered: ED Orders 10/13/24 07:47 Urinalysis and Microscopic Stat 10/13/24 07:56 Complete Blood Count AUTO DIFF Stat Comprehensive Metabolic Panel Stat Lipase Stat 10/13/24 08:09 CT kidney ureter bladder (KUB) Stat 10/13/24 08:18 UA Complete [Urinalysis and Microscopic] Stat Ondansetron HCl (Ondansetron 4 Mg/2 Ml Inj) 4 mg IV NOW PRN PRN Reason: Nausea And Vomiting Discontinued Medications Morphine Sulfate (Morphine 4 Mg/Ml Inj) 4 mg IV NOW ONE Stop: 10/13/24 08:04 Last Admin: 10/13/24 08:08 Dose: 4 mg Documented By: MILAN Ondansetron HCl (Ondansetron 4 Mg Odt) 4 mg PO NOW PRN PRN Reason: Nausea And Vomiting Ondansetron HCl (Ondansetron 4 Mg/2 Ml Inj) 4 mg IV NOW ONE Stop: 10/13/24 08:04 Last Admin: 10/13/24 08:08 Dose: 4 mg Documented By: MILAN Vital Signs Vital signs: Vital Signs - 8 hr 10/13/24 07:48 Temperature 97.9 F Pulse Rate 65 Respiratory Rate 17 Blood Pressure 199/93 H Pulse Oximetry 100 Oxygen Delivery Method Room Air MDM - Abdominal Pain Lab Data 10/13/24 07:56 10/13/24 07:56 Labs: Lab Results 10/13/24 10/13/24 Range/Units 07:47 07:56 WBC 6.2 (4.5-11.0) X10^3/uL RBC 4.23 L (4.5-5.9) X10^6/uL Hgb 13.8 (13.5-17.5) g/dL Hct 40.4 L (41-53) % MCV 95.5 (80-100) fL MCH 32.5 (26-34) PG MCHC 34.1 (30-36) % RDW 12.8 (11.6-14.8) % Plt Count 174 (150-400) X10^3/uL Neut % (Auto) 66.2 (50-75) % Lymph % (Auto) 23.3 L (25-40) % [place] % (Auto) 8.2 (3-14) % Eos % (Auto) 1.8 L (2-4) % Baso % (Auto) 0.5 (0-2) % Neut # (Auto) 4100 (8605-8874) /uL Lymph # (Auto) 1400 (2714-7729) /uL [place] # (Auto) 500 (0-900) /uL Eos # (Auto) 100 (0-450) /uL Baso # (Auto) 0 (0-100) /uL Sodium 140 (137-145) mmol/L Potassium 3.9 (3.4-5.1) mmol/L Chloride 106 (98-107) mmol/L Carbon Dioxide 27 (22-32) mmol/L BUN 24 H (9-20) mg/dL Creatinine 1.25 (0.66-1.25) mg/dL Estimated GFR > 60 (>60) mL/min BUN/Creatinine Ratio 19.2 (6-22) Glucose 114 H (70-99) mg/dL Calcium 9.8 (8.4-10.2) mg/dL Total Bilirubin 0.7 (0.2-1.3) mg/dL AST 34 (17-59) IU/L ALT 30 (<50) IU/L Alkaline Phosphatase 76 (38-126) U/L Total Protein 7.3 (6.3-8.2) g/dL Albumin 4.3 (3.5-5.0) g/dL Globulin 3.0 (1.7-4.1) g/dL Albumin/Globulin Ratio 1.4 (1.0-2.8) Lipase 54 (23-300) U/L Urine Color Yellow Urine Appearance Clear Urine pH 6.0 (4.5-8.0) Ur Specific [place] 1.025 (1.000-1.035) Urine Protein Negative (Negative) Urine Glucose (UA) Negative (Negative) g/dL Urine Ketones Negative (NEGATIVE) Urine Occult Blood 1+ H (Negative) Urine Nitrate Negative (Negative) Urine Bilirubin Negative (NEGATIVE) Urine Urobilinogen 0.2 (0.2) E.U./dL Ur Leukocyte Esterase Negative (NEGATIVE) Urine RBC 1-5/hpf D (0-5/HPF) Urine WBC None seen (0-5/HPF) Ur Squamous Epith Cells 0-1 /hpf (0-5/HPF) Urine Bacteria None seen (None) Ur Culture Indicated? Cult not indicated Vol Urine Centrifuged 10ml (spun) Point of care testing: Urine Dip Bedside Urine Glucose Negative Bedside Urine Bilirubin - Negative Bedside Urine Ketone - Negative Urine Specific [place] 1.020 Bedside Urine Occult Blood ++ Bedside Urine pH 6.0 Bedside Urine Protein - Negative Bedside Urine Urobilinogen - Negative Bedside Urine Nitrite - Negative Bedside Urine Leukocytes - Negative Esterase MDM Narrative Medical decision making narrative: In brief, this is a 68-year-old male with history of ureteral colic here with acute left flank pain for several hours. He has had some transient nausea without vomiting. Denies chest or abdominal pain, tearing or ripping sensation. He also noted some pink tinged possibly blood on the toilet paper recently but no edna blood. In chart review: I see has history of external hemorrhoids, diverticulosis. As he visited emergency department in July 2022 and was diagnosed with ureteral colic. CT at that time showed 6 mm obstructing stone in the distal right ureter with moderate right hydronephrosis, hydroureter and perinephric stranding. On arrival to the emergency department, the patient is in moderate pain due to flank pain, requesting something for pain. He is noted to be hypertensive, afebrile Exam is pertinent for: Benign abdomen, no pulsatile mass, there is a small left lower abdominal wall hernia that is nontender and soft Differential diagnoses considered but not limited to: Recurrence of ureteral colic. History and exam is less suggestive of pyelonephritis or musculoskeletal etiology. I do not suspect acute aortic dissection clinically. Initial treatment plan includes: Send urinalysis, laboratories, send for CT KUB, offered IV Zofran and morphine for pain management initially Laboratories pertinent for: No leukocytosis no anemia, no thrombocytopenia, normal electrolytes, slight BUN elevation, creatinine is near baseline at 1.25, urinalysis shows 1+ blood without infection Imaging pertinent for: CT showing obstructing 3 mm stone at the left UVJ with moderate upstream hydro ureteral nephrosis. No diverticulitis noted. I personally reviewed CT images and agree with radiologist's interpretation On reassessment at 0920 the patient is well-appearing. He reports his pain is much improved. He feels well enough to go home. I updated him and his regarding CT findings and laboratory findings. Counseled extensively on pain management at home with expectant management for ureteral stone. He will be referred to PCP. He may benefit from referral to Urology given recurrence of ureteral stones for further workup. Return precautions discussed and provided prior to discharge Discharge Plan Departure Patient Disposition: Home Clinical Impression: Calculus of left ureter Instructions: DI for Kidney Stones Activity Restrictions/Additional Instructions: You are found today to have a 3 mm stone that has nearly made his way to the bladder. Hopefully this stone will pass over the next few days. In the meantime I have prescribed you some medications to help with nausea, and to help the stone pass. For pain please take ibuprofen 800 mg every 8 hours, acetaminophen 500 mg every 6 hours. You may use [place] as previously prescribed as needed for severe or breakthrough pain. Please remember that narcotic pain medication is addictive, lethal in overdose, causes constipation and sedation. If you use this medication consistently over time, your body will become habituated to it and you will ultimately need increasing doses. In the long run, this medication will actually increase your sensitivity to pain and it does not actually address the underlying cause of pain, it only masks at temporarily. You must not drive or perform other risky behavior while on this medication. You must not combine it with alcohol or other drugs. Please only take the minimum amount needed to treat your pain. Return to the emergency department for pain or nausea that is not controlled at home or new symptoms such as fever, pain elsewhere in your abdomen or chest Prescriptions: New ondansetron 4 mg tablet,disintegrating 4 mg PO Q8H PRN (Reason: nausea and vomiting) 4 Days Qty: 10 0RF tamsulosin 0.4 mg capsule 0.4 mg PO DAILY Qty: 20 0RF No Action hydrocodone-acetaminophen 5-325 mg tablet 1 tab PO Q6H PRN (Reason: pain) Qty: 20 0RF Stand Alone Forms: Patient Portal/API
[2024-10-13] MEDS: ONDANSETRON 4 MG/2 ML INJ IV (08:08)
[2024-10-13] MEDS: MORPHINE 4 MG/ML INJ IV (08:08)
--- NOTE | 2024-10-13 08:09 | DI.CT.S_ITS ---
PROCEDURE: CT KIDNEY URETER BLADDER (KUB) INDICATIONS: left flank pain TECHNIQUE: Axial sections were acquired from the lung bases to the pubic symphysis. Coronal and sagittal reformats were performed. For radiation dose reduction, the following was used: automated exposure control, adjustment of mA and/or kV according to patient size. COMPARISON: [facility], CT, CT KIDNEY URETER BLADDER (KUB), 12/15/2023, 11:09. FINDINGS: Image quality: Diagnostic. Lower Chest: No significant findings. URINARY: Right Kidney: No stones or hydronephrosis. Right Ureter: No hydroureter. Left Kidney: Nonobstructing 3 mm stone. Moderate hydronephrosis. Left Ureter: Obstructing 3 mm stone at the ureterovesicular junction resulting in moderate upstream hydroureter. Bladder: Normal wall thickness. No stones. ABDOMEN: Liver: No contour-deforming solid mass. Gallbladder: No radiopaque gallstones or wall thickening. Biliary ducts: No biliary dilation. Pancreas: No ductal dilation. Spleen: Size is within normal limits. Adrenal Glands: No adrenal nodules. Stomach and Bowel: Normal colonic caliber, without significant wall thickening. Diverticulosis without evidence of acute diverticulitis. Peritoneum: No abnormal intraperitoneal fluid. No free air. Ventral Wall: Left lower spigelian hernia containing fat. Abdominal Nodes: No enlarged retroperitoneal or mesenteric lymph nodes. Vessels: Aorta and inferior vena cava are normal in size. Atherosclerotic vascular calcifications. PELVIS: Pelvic Organs: Unremarkable. Pelvic Nodes: Unremarkable. Miscellaneous: No inguinal hernias are seen. Bones: Degenerative changes of the spine. IMPRESSION: 1. Obstructing 3 mm stone within the left ureterovesicular junction resulting in moderate upstream hydroureteronephrosis. 2. Diverticulosis without evidence of acute diverticulitis. Dictated by: Francois Reyes M.D. on 10/13/2024 at 8:54 Approved by: Francois Reyes M.D. on 10/13/2024 at 9:01
[2024-10-13 08:21] LABS: Add Manual Diff / Slide Review NO; Basophils Absolute Auto 0 /uL (0-100); Basophils Percent Auto 0.5 % (0-2); Eosinophils Absolute Auto 100 /uL (0-450); Eosinophils Percent Auto 1.8 % (2-4); Hematocrit 40.4 % (41-53); Hemoglobin 13.8 g/dL (13.5-17.5); Lymphocytes Absolute Auto 1400 /uL (1100-4500); Lymphocytes Percent Auto 23.3 % (25-40); Mean Corpuscular HGB Conc 34.1 % (30-36); Mean Corpuscular Hemoglobin 32.5 PG (26-34); Mean Corpuscular Volume 95.5 fL (80-100); Monocytes Absolute Auto 500 /uL (0-900); Monocytes Percent Auto 8.2 % (3-14); Neutrophils Absolute Auto 4100 /uL (1500-7000); Neutrophils Percent Auto 66.2 % (50-75); Platelet Count 174 X10^3/uL (150-400); Red Blood Cell Count 4.23 X10^6/uL (4.5-5.9); Red Cell Distribution Width 12.8 % (11.6-14.8); White Blood Cell Count 6.2 X10^3/uL (4.5-11.0)
[2024-10-13 08:44] LABS: Alanine Aminotransferase 30 IU/L (<50); Albumin 4.3 g/dL (3.5-5.0); Albumin Globulin Ratio 1.4 (1.0-2.8); Alkaline Phosphatase 76 U/L (38-126); Aspartate Aminotransferase 34 IU/L (17-59); BUN Creatinine Ratio 19.2 (6-22); Bilirubin Total 0.7 mg/dL (0.2-1.3); Blood Urea Nitrogen 24 mg/dL (9-20); Calcium 9.8 mg/dL (8.4-10.2); Carbon Dioxide 27 mmol/L (22-32); Chloride 106 mmol/L (98-107); Estimated Glomerular Filt Rate > 60 mL/min (>60); Glucose 114 mg/dL (70-99); HEMOLYSIS 19 (0-50); Lipase 54 U/L (23-300); Potassium 3.9 mmol/L (3.4-5.1); Sodium 140 mmol/L (137-145); Total Protein 7.3 g/dL (6.3-8.2)
== END 2024-10-13 10:22 | disposition home or self-care (01) ==
PROVIDERS: Emergency Provider Student in an Organized Health Care Education/Training Program
DX: N20.1 Calculus of ureter (principal)
CPT/HCPCS: 74176; 80053; 81001; 81003; 83690; 85025; 96374; 96375; 99283; 99284; J2270; J2405